=== PATIENT | female | born 1945 | race Caucasian/White ===

== ENCOUNTER → 2019-09-02 | Day surgery (SDC) | payer OTHER ==
--- NOTE | 2019-09-02 11:03 | RAD REPORT ---
EXAM DESCRIPTION: Ultrasound-guided vacuum assisted right breast core biopsy CLINICAL HISTORY: Breast mass N63.10 COMPARISON: No comparisons FINDINGS: Informed consent was obtained and time-out was performed. The patient's right breast was prepped and draped in the usual sterile fashion. 1% lidocaine was used for local anesthetic purposes. Utilizing aseptic technique and ultrasound guidance, a 12 gauge vacuum assisted core biopsy device wa s used to obtain 2 core specimens through the mass of interest lower inner quadrant right breast. A p ost biopsy clip was then placed. All collected material was sent for cytology. Patient tolerated procedure well. IMPRESSION: Successful ultrasound guided vacuum assisted right breast mass biopsy.
--- OUTSIDE RECORDS SUMMARY | 2019-09-09 16:36 | XMS REPORT ---
:1945 [facility] Address [address] [place], [place] [address] [place] [address] Care Team Providers Name Role Phone BRIAN SLADE Unavailable Unavailable Problems This patient has no known problems. Allergies, Adverse Reactions, Alerts This patient has no known allergies or adverse reactions. Medications This patient has no known medications. Results Test Description Test Time Test Comments Text Results Atomic Results Result Comments POCT-GLUCOSE METER 2016-10-19 17:35:00 Test Item Value Reference Range Comments POC-GLUCOSE METER ([employer]) (test 190 mg/dL 70-110 TESTED AT [address] xkri=[id number]) [place] [id number] 13:41:00 Test Item Value Reference Range Comments ACTIVATED CLOTTING TIME [address] [facility] [address] ([employer]) (test ecov=239) [place] [id number] POCT-GLUCOSE [id number] 11:37:00 Test Item Value Reference Range Comments POC-GLUCOSE METER ([employer]) 171 mg/dL 70-110 TESTED AT [address] (test ugag=0645) [place] [address] TROPONIN [id number] 05:50:00 Test Item Value Reference Range Comments TROPONIN I (BEAKER) (test iyqn=990) 0.04 ng/mL 0.00-0.03 Effective 05/18/2014: Reference Range ChangeNew: 0.00-0.03 Previous 0.00- 0.15Troponin I (TnI) levels must be interpreted in the context of the presenting symptoms and the clinical findings. Elevated TnI levels indicate myocardial damage, but are not specific for ischemic heart disease. Elevated TnI levels are seen in patients with other cardiac conditions (including myocarditis and congestive heartfailure), and slight TnI elevations occur in patients with other conditions, including sepsis, renalfailure, acidosis, acute neurological disease, and persistent tachyarrhythmia.POCT-GLUCOSE [id number] 21:37:00 Test Item Value Reference Range Comments POC-GLUCOSE METER (BEAKER) 177 mg/dL 70-[address] [facility] [address] (test jvni=9961) [facility] [address] BASIC METABOLIC [id number] 16:50:00 Test Item Value Reference Range Comments SODIUM (BEAKER) (test 139 meq/L 136-145 loos=738) POTASSIUM (BEAKER) (test 4.2 meq/L 3.5-5.1 xtkt=818) CHLORIDE (BEAKER) (test 109 meq/L 98-107 jeba=026) CO2 (BEAKER) (test 21 meq/L 22-29 fseh=675) BLOOD UREA NITROGEN 18 mg/dL 7-21 (BEAKER) (test baec=542) CREATININE (BEAKER) (test 0.80 mg/dL 0.57-1.25 buyp=272) GLUCOSE RANDOM (BEAKER) 138 mg/dL 70-105 (test cdpg=268) CALCIUM (BEAKER) (test 9.0 mg/dL 8.4-10.2 jajh=276) EGFR (BEAKER) (test 71 mL/min/1.73 sq m ESTIMATED GFR IS NOT mrbq=3806) ACCURATE CREATININE CLEARANCE IN PREDICTING GLOMERULAR FILTRATION RATE. ESTIMATED GFR IS NOT APPLICABLE FOR DIALYSIS PATIENTS. CBC W/PLT COUNT & AUTO [id number] 16:47:00 Test Item Value Reference Range Comments WHITE BLOOD CELL COUNT (BEAKER) (test egui=702) 8.5 K/ L 4.0-10.0 RED BLOOD CELL COUNT (BEAKER) (test vkrq=740) 4.87 M/ L 4.00-5.00 HEMOGLOBIN (BEAKER) (test bdyl=940) 14.1 GM/DL 12.0-15.0 HEMATOCRIT (BEAKER) (test fhup=185) 43.8 % 36.0-45.0 MEAN CORPUSCULAR VOLUME (BEAKER) (test osjq=905) 90.1 fL 82.0-99.0 MEAN CORPUSCULAR HEMOGLOBIN (BEAKER) (test 28.9 pg 27.0-33.0 baxj=513) MEAN CORPUSCULAR HEMOGLOBIN CONC (BEAKER) (test 32.1 GM/DL 32.0-36.0 pezl=002) RED CELL DISTRIBUTION WIDTH (BEAKER) (test 13.2 % 10.3-14.2 mrru=772) PLATELET COUNT (BEAKER) (test ttna=149) 189 K/CU MM 150-430 MEAN PLATELET VOLUME (BEAKER) (test gjkz=040) 7.9 fL 6.5-10.5 NUCLEATED RED BLOOD CELLS (BEAKER) (test 0 /100 WBC 0-0 oraz=603) NEUTROPHILS RELATIVE PERCENT (BEAKER) (test 74 % unoo=181) LYMPHOCYTES RELATIVE PERCENT (BEAKER) (test 19 % zaip=192) MONOCYTES RELATIVE PERCENT (BEAKER) (test 6 % dume=326) EOSINOPHILS RELATIVE PERCENT (BEAKER) (test 0 % hket=852) BASOPHILS RELATIVE PERCENT (BEAKER) (test 0 % yvpe=721) NEUTROPHILS ABSOLUTE COUNT (BEAKER) (test 6.29 K/ L 1.80-8.00 zpxl=857) LYMPHOCYTES ABSOLUTE COUNT (BEAKER) (test 1.61 K/ L 1.48-4.50 fqre=163) MONOCYTES ABSOLUTE COUNT (BEAKER) (test 0.55 K/ L 0.00-1.30 qwry=857) EOSINOPHILS ABSOLUTE COUNT (BEAKER) (test 0.01 K/ L 0.00-0.50 dvhe=577) BASOPHILS ABSOLUTE COUNT (BEAKER) (test 0.04 K/ L 0.00-0.20 xrpg=302) 0.00POCT-GLUCOSE [id number] 16:30:00 Test Item Value Reference Range Comments POC-GLUCOSE METER (BEAKER) 145 mg/dL 70-[address] [facility] [address] [facility] (test lxwn=6971) [facility] [address] TROPONIN [id number] 13:59:00 Test Item Value Reference Range Comments TROPONIN I (BEAKER) (test kdlk=634) 0.03 ng/mL 0.00-0.03 Effective 05/18/2014: Reference Range ChangeNew: 0.00-0.03 Previous 0.00- 0.15Troponin I (TnI) levels must be interpreted in the context of the presenting symptoms and the clinical findings. Elevated TnI levels indicate myocardial damage, but are not specific for ischemic heart disease. Elevated TnI levels are seen in patients with other cardiac conditions (including myocarditis and congestive heartfailure), and slight TnI elevations occur in patients with other conditions, including sepsis, renalfailure, acidosis, acute neurological disease, and persistent tachyarrhythmia.POCT-GLUCOSE [id number] 12:35:00 Test Item Value Reference Range Comments POC-GLUCOSE METER ([employer]) 186 mg/dL 70-[address] [facility] [address] [place] [address] (test phtv=8522) [facility] [address]
== END ==
LOC: DS 10:00
PROVIDERS: ATTEND Family Medicine
DX: C50.911 Malignant neoplasm of unspecified site of right female breast (principal); Z17.0 Estrogen receptor positive status [ER+]
CPT/HCPCS: 19083; 88305

== ENCOUNTER 2019-10-19 14:49 | Inpatient (IN) | payer OTHER ==
--- OUTSIDE RECORDS SUMMARY | 2019-10-19 15:30 | XMS REPORT ---
:1945 Author Organization [facility] t Address [address] [place] [address] Care Team Providers Name Role Phone Chantell SLADE Unavailable Unavailable Problems This patient has no known problems. Allergies, Adverse Reactions, Alerts This patient has no known allergies or adverse reactions. Medications This patient has no known medications. Results Test Description Test Time Test Comments Text Results Atomic Results Result Comments POCT-GLUCOSE METER 2016-10-19 17:35:00 Test Item Value Reference Range Comments POC-GLUCOSE METER ([employer]) (test 190 mg/dL 70-110 TESTED AT [facility] [address] [facility] code = 1538) [facility] [address] [id number] 13:41:00 Test Item Value Reference Range Comments ACTIVATED CLOTTING TIME 198 sec TESTED A T [facility] [address] ([employer]) (test code = 441) [facility] [address] POCT-GLUCOSE [id number] 11:37:00 Test Item Value Reference Range Comments POC-GLUCOSE METER ([employer]) 171 mg/dL 70-110 TESTE D AT [facility] [address] [facility] (test code = 1538) [facility] [address] TROPONIN [id number] 05:50:00 Test Item Value Reference Range Comments TROPONIN I (BEAKER) (test code = 397) 0.04 ng/mL 0.00-0.03 Effective 05/18/2014: Reference Range [...] acidosis, acute neurological disease, and persistent tachyarrhythmia.POCT-GLUCOSE [id number] 21:37:00 Test Item Value Reference Range Comments POC-GLUCOSE METER (BEAKER) 177 mg/dL 70-110 TESTE D AT [facility] [address] (test code = 1538) [place] [address] BASIC METABOLIC [id number] 16:50:00 Test Item Value Reference Range Comments SODIUM (BEAKER) (test 139 meq/L 136-145 code = 381) POTASSIUM (BEAKER) (test 4.2 meq/L 3.5-5.1 code = 379) CHLORIDE (BEAKER) (test 109 meq/L 98-107 code = 382) CO2 (BEAKER) (test code = 21 meq/L 22-29 355) BLOOD UREA NITROGEN 18 mg/dL 7-21 (BEAKER) (test code = 354) CREATININE (BEAKER) (test 0.80 mg/dL 0.57-1.25 code = 358) GLUCOSE RANDOM (BEAKER) 138 mg/dL 70-105 (test code = 652) CALCIUM (BEAKER) (test 9.0 mg/dL 8.4-10.2 code = 697) EGFR (BEAKER) (test code 71 mL/min/1.73 sq m EST IMATED GFR IS NOT = 1092) ACCURATE CREA TININE CLEARANCE IN PRE DICTING GLOMERULAR FILTR ATION RATE. ESTIMATED GFR IS NOT APPLICABLE F OR DIALYSIS PATIENT S. CBC W/PLT COUNT & AUTO [id number] 16:47:00 Test Item Value Reference Range Comments WHITE BLOOD CELL COUNT (BEAKER) (test code = 8.5 K/ L 4.0 -10.0 775) RED BLOOD CELL COUNT (BEAKER) (test code = 761) 4.87 M/ L 4.00-5.00 HEMOGLOBIN (BEAKER) (test code = 410) 14.1 GM/DL 12.0-15.0 HEMATOCRIT (BEAKER) (test code = 411) 43.8 % 36.0-45.0 MEAN CORPUSCULAR VOLUME (BEAKER) (test code = 90.1 fL 82 .0-99.0 753) MEAN CORPUSCULAR HEMOGLOBIN (BEAKER) (test code 28.9 pg 27.0-33.0 = 751) MEAN CORPUSCULAR HEMOGLOBIN CONC (BEAKER) (test 32.1 GM/DL 32.0-36.0 code = 752) RED CELL DISTRIBUTION WIDTH (BEAKER) (test code 13.2 % 10.3-14.2 = 412) PLATELET COUNT (BEAKER) (test code = 756) 189 K/CU MM 150-43 0 MEAN PLATELET VOLUME (BEAKER) (test code = 754) 7.9 fL 6.5-10.5 NUCLEATED RED BLOOD CELLS (BEAKER) (test code = 0 /100 WBC 0-0 413) NEUTROPHILS RELATIVE PERCENT (BEAKER) (test code 74 % = 429) LYMPHOCYTES RELATIVE PERCENT (BEAKER) (test code 19 % = 430) MONOCYTES RELATIVE PERCENT (BEAKER) (test code = 6 % 431) EOSINOPHILS RELATIVE PERCENT (BEAKER) (test code 0 % = 432) BASOPHILS RELATIVE PERCENT (BEAKER) (test code = 0 % 437) NEUTROPHILS ABSOLUTE COUNT (BEAKER) (test code = 6.29 K/ L 1.80-8.00 670) LYMPHOCYTES ABSOLUTE COUNT (BEAKER) (test code = 1.61 K/ L 1.48-4.50 414) MONOCYTES ABSOLUTE COUNT (BEAKER) (test code = 0.55 K/ L 0 .00-1.30 415) EOSINOPHILS ABSOLUTE COUNT (BEAKER) (test code = 0.01 K/ L 0.00-0.50 416) BASOPHILS ABSOLUTE COUNT (BEAKER) (test code = 0.04 K/ L 0 .00-0.20 417) 0.00POCT-GLUCOSE [id number] 16:30:00 Test Item Value Reference Range Comments POC-GLUCOSE METER (BEAKER) 145 mg/dL 70-110 TESTE D AT [facility] [address] [facility] (test code = 1538) [place] [address] TROPONIN [id number] 13:59:00 Test Item Value Reference Range Comments TROPONIN I (BEAKER) (test code = 397) 0.03 ng/mL 0.00-0.03 Effective 05/18/2014: Reference Range [...] acidosis, acute neurological disease, and persistent tachyarrhythmia.POCT-GLUCOSE [id number] 12:35:00 Test Item Value Reference Range Comments POC-GLUCOSE METER (BEAKER) 186 mg/dL 70-110 TESTE D AT [facility] [address] (test code = 1538) [facility] [address]
[2019-10-19 16:21] LABS: Absolute Lymphocytes (CBC) 2.5 K/uL (0.7-4.9); Basophils % 0.5 % (0-1.3); Hematocrit 47.4 % (36.0-45.0); Lymphocytes % 27.3 % (15.3-44.8); MPV 9.6 fL (7.6-11.3); RBC Red Blood Cell Count 5.24 M/uL (3.86-4.86)
[2019-10-19] MEDS ORDERED: ONDANSETRON 4 MG/2 ML VIAL IV PRN (16:29)
--- NOTE | 2019-10-19 16:33 | RAD REPORT ---
EXAM DESCRIPTION: RAD - Abdomen 1 View (KUB) - 10/19/2019 4:25 pm CLINICAL HISTORY: Abdomen pain. FINDINGS: The stomach is distended. Remainder the bowel gas pattern is unremarkable. 10 millimeter area sclerosis within the right ischium. Follow-up x-ray in 6 months recommended to ass ess stability
[2019-10-19 16:46] VITALS: BMI 29.4
[2019-10-19 16:55] LABS: Potassium 3.1 mmol/L (3.5-5.1)
[2019-10-19] MEDS: NA CHLORIDE 0.9% 1,000 ML IV SCH ×4 (17:00→23:30)
[2019-10-19] MEDS ORDERED: NITROGLYCERIN 0.3 MG SL PRN (17:05)
[2019-10-19] MEDS ORDERED: POTASSIUM CL SA 10 MEQ TAB PO ONE (17:21)
[2019-10-19 20:43] LABS: Urine Appearance CLOUDY; Urine Bilirubin NEGATIVE (NEG); Urine Blood NEGATIVE (NEG); Urine Color YELLOW; Urine Glucose 3+ (NEG); Urine Protein NEGATIVE (NEG); Urine Urobilinogen 0.2 mg/dL (0.2-1.0)
[2019-10-19 20:45] LABS: Urine Microscopic Reflex ORDER UMIC
[2019-10-19 20:59] LABS: Urine Bacteria 20-50 /HPF (<20); Urine Culture Reflex Order REFLEXED; Urine Mucus 2+ /HPF (NONE SEEN); Urine RBC <5 /HPF (NONE SEEN)
[2019-10-20] MEDS: KCL 20 MEQ/100 mL IVPB 20 MEQ/100 ML BAG IV SCH ×4 (00:30→11:50)
[2019-10-20 06:11] LABS: Potassium 3.3 mmol/L (3.5-5.1)
[2019-10-20] MEDS: NISOLDIPINE PO SCH (09:00)
--- NOTE | 2019-10-20 10:54 | RAD REPORT ---
EXAM DESCRIPTION: CT - Abdomen W Contrast - 10/20/2019 10:28 am CLINICAL HISTORY: Abdominal pain/diarrhea COMPARISON: None TECHNIQUE: Computed axial tomography from the diaphragm to the iliac crest was obtained. Oral contra st was given. 100 cc Isovue-[address] scans are performed using dose optimization technique as appropriate and may include automated exposure control or mA/KV adjustment according to patient size. FINDINGS:. Fatty liver The spleen, adrenals, pancreas and kidneys appear grossly normal. The wall of the distal esophagus is thickened. Apparent soft tissue is present within the proximal st omach . Mild gastric distention Increased density within the lower right breast IMPRESSION: Apparent soft tissue within the proximal stomach. This may represent a mass or incomplet e distention. Thickening of the wall of the distalesophagus may represent mass or inflammation. Direc t visualization of the distal esophagus/stomach recommended Increased density within the lower right breast. August 2019 ultrasound demonstrated a mass in this region
--- NOTE | 2019-10-20 12:07 | HP ---
Date of Admission: 10/19/2019 Chief Complaint: Dehydration and persistent diarrhea. History Of Present Illness: Patient dates her diarrhea back a number of years since she had a laparo clark band. However, in most cases it is controlled by taking bxmo-lzt-hyzhepv medicine. However, ov er the past month she has had increasing episodes that have not responded to her usual medication, an d for the past 3 days, had persistent diarrhea. The night before being admitted, she was up 6 to 8 t imes with pure watery drainage and diarrhea. Significant factors besides the laparotomy band situati on include her diabetes which has been somewhat difficult to control, various combinations of shots a nd pills have been utilized as possible. This also has contributed to her diarrhea. However, the sy mptoms as of now increased as she has become quite weak. The other factors, she selected to have wilmar ast surgery for her ductal CA within the next week or so in [place]. In view of these findings, we d ecided to admit her, hydrate her, and evaluate her prior to her surgical procedure. The other proble m that has cropped up is hypokalemia, which was noted about 2 weeks ago and attempted to be corrected by oral medication, this too has been unsuccessful. Past Medical History: As above. Patient also has history of hypertension which is pretty well contr olled on medication. Social History: Nonsmoker, nondrinker. Family History: Noncontributory. Physical Examination: General: Patient is an elderly female with stable vital signs. No acute distress. Head and Neck: Normocephalic. Eyes: Pupils equal to light and accommodation. Fundi negative. Trachea midline. Thyroid not palpa ble. ENT: Negative. Chest: Clear to P and A. Cardiovascular: PMI midclavicular line. Heart sounds normal. Peripheral pulses present and equal bilaterally. Abdomen: Minimal tenderness in paraumbilical area. No guarding, rebound, tenderness, or rigidity. Bowel sounds hyperactive. Extremities: Moderately dehydrated. Good tone and movement bilaterally. Reflexes physiologic. Rectal/Pelvic: Deferred. Impression: Acute enteritis of unknown etiology, paj-yxmvuur-fggcvxtrg diabetes mellitus good contro l, hypertension good control, hypokalemia. Plan: Patient will be admitted, placed on IV fluids, hydrated, placed on a sliding scale. The possi bility of oral or subcutaneous injection are contributing to her diarrhea and potassium will be corre cted. Her chemistry profile, labs, and CT of the abdomen will also be scheduled. HR/MODL Voice ID: [id number]
[2019-10-20] MEDS: NA CHLORIDE 0.9% 1,000 ML IV SCH ×4 (14:16→23:39)
[2019-10-20] MEDS ORDERED: CEFTRIAXONE/SWI 1gm 1 GM/10 ML SYR IVP ONE (15:00)
[2019-10-20 15:15] LABS: C.diff Antigen/Toxin Ag neg : Tox neg (NEG : NEG)
--- NOTE | 2019-10-20 19:59 | PN ---
Date of Progress Note: 10/20/2019 Patient has had marked decrease in her diuresis that she has gone from 6-7 times at night at home to 2 times overnight and 13 during the day, so her workup included were a 4+ E coli for UTI, although sh e is asymptomatic. She has had problems with this in the past. We will therefore add Rocephin IV to the regimen. Hydration is improved considerably, although she still slightly clinically dehydrated. Her potassium is in the process of being corrected. The other significant factor is on her CT scan showed some questionable problems at the esophageal GI and gastric junction. However, patient had a traumatic Lap-Band procedure number of years ago and according to her, has not been scoped since phil t time. Therefore, consults and Gastroenterology will see the possibility of this being an issue or not. Potassium is ready to be repeated at 8 tonight according to protocol and then I will advance he r diet and depending on the gastroenterology consult may or may not be suitable for EGD and/or colono scopy in a.m. and determination will depend on her discharge status. The other issue is the blood wilhelm gars have been perfectly normal while she has been here same as her blood pressure. I attribute that somewhat to her diet, in the fact she still has been 5 days now and had for di arrhea, she takes Nexium on a continuous basis. This has been changed to Protonix IV. All these fac tors may lead to her persistent diarrhea. HR/MODL Voice ID: [id number] Report ID: [id number]
[2019-10-20] MEDS ORDERED: POTASSIUM CL SA 10 MEQ TAB PO ONE (20:34)
[2019-10-20] MEDS ORDERED: ACETAMINOPHEN 500 MG TAB PO PRN (20:57)
[2019-10-21 04:29] LABS: Urine Appearance CLOUDY; Urine Bilirubin NEGATIVE (NEG); Urine Blood TRACE (NEG); Urine Color YELLOW; Urine Glucose 1+ (NEG); Urine Protein NEGATIVE (NEG); Urine Urobilinogen 0.2 mg/dL (0.2-1.0)
[2019-10-21 04:48] LABS: Urine Bacteria <20 /HPF (<20); Urine Culture Reflex Order REFLEXED; Urine RBC <5 /HPF (NONE SEEN); Urine Urothelial Cells <5 /HPF (NONE SEEN)
[2019-10-21 05:13] LABS: Absolute Lymphocytes (CBC) 2.1 K/uL (0.7-4.9); Basophils % 0.6 % (0-1.3); Hematocrit 43.4 % (36.0-45.0); Lymphocytes % 22.2 % (15.3-44.8)
[2019-10-21 05:27] LABS: Potassium 3.4 mmol/L (3.5-5.1)
[2019-10-21 05:41] LABS: Blood Morphology Comment NOT SEEN (NOT SEEN); Platelet Estimate DECR; Urine White Blood Cell Casts OK
[2019-10-21] MEDS: KCL 20 MEQ/100 mL IVPB 20 MEQ/100 ML BAG IV SCH ×2 (06:21→08:58)
--- NOTE | 2019-10-21 08:30 | RAD REPORT ---
EXAM DESCRIPTION: RAD - Chest Pa And Lat (2 Views) - 10/21/2019 5:27 am CLINICAL HISTORY: doctors order Chest pain. COMPARISON: Abdomen 1 View (KUB) dated 10/19/2019; Chest Single View dated 10/18/2016; CHEST SINGLE EW dated 06/12/2010; CHEST SINGLE VIEW dated 02/25/2004 FINDINGS: The lungs are clear. The heart is upper limit of normal in size. No displaced fractures. IMPRESSION: No acute or concerning finding suspected.
[2019-10-21] MEDS: NA CHLORIDE 0.9% 1,000 ML IV SCH ×2 (08:59→17:00)
[2019-10-21] MEDS ORDERED: CEFTRIAXONE/SWI 1gm 1 GM/10 ML SYR IVP SCH (09:00)
[2019-10-21] MEDS: NISOLDIPINE PO SCH (09:00)
[2019-10-21] MEDS ORDERED: D50W 25 GM/50 ML SYRINGE/VIAL IV PRN (11:44)
[2019-10-21] MEDS ORDERED: LIDOCAINE 1% MPF 5 ML VIAL ONE (13:32)
[2019-10-21] MEDS ORDERED: propofoL 200 MG/20 ML VIAL IV ONE (13:32)
[2019-10-21 14:32] VITALS: O2SAT 99
[2019-10-21] MEDS ORDERED: SODIUM CHLORIDE 0.9% 10ML INJ IV PRN (14:57)
[2019-10-21 16:09] VITALS: BP 150/74
[2019-10-21 17:42] VITALS: TEMP 98.9
--- NOTE | 2019-10-21 19:51 | DS ---
Date of Discharge: 10/21/2019 Subjective: Patient is seen after her EGD, which revealed rather significant gastroparesis, in view of this, however, she still feels much better than when she came in. She is well hydrated. Potassiu m almost back to normal. The remainder of her blood work is good. Her temperature is stabilized, oc casionally slightly elevated. Her appetite remains good. Activity level is good. I see no reason w hy she cannot be discharged. As far as the diuresed concern is still a little bit confusing. She wa s given Protonix IV. If diarrhea occurs after this, then probably secondary to a PPI which she has b een taking in the form of Nexium. Her blood sugars have remained extraordinary under control as well as her blood pressure, possibly secondary to her being in the hospital rather than her normal outsid e activity. The Bydureon is still in her system although should be wearing off tomorrow. At this ti me, I think it would be jimenez to withhold her diabetic medicine, her blood pressure medicine, her chol esterol medication as well and she could be discharged with instructions to have blood sugars and blo od pressure readings when she will discuss with me tomorrow on Telemedicine, to see Dr. De La Paz as guillermo márquez for followup probable colonoscopy and she is to discuss her best surgical timing with the surgeon tomorrow before a telemedicine visit. Diagnoses: Therefore was dehydration marked with hypokalemia; gastroparesis significant; persistent diarrhea of uncertain etiology, at this time, possibly a combination of medications and neuropathy se condary to diabetes; mjy-xkvzdfp-aqskgoxee diabetes mellitus, good control; hypertension good control ; breast cancer by history. HR/MODL Voice ID: [id number] Report ID: [id number]
[2019-10-21] MEDS ORDERED: PANTOPRAZOLE 40 MG INJ IVP SCH (21:00)
--- NOTE | 2019-10-22 00:06 | OP ---
Surgeon: Oscar De La Paz MD Procedure: Esophagogastroduodenoscopy. Performing Physician: Oscar De La Paz M.D. Indication For Procedure: Abnormal CAT scan showing suspicion of mass in the distal esophagus. Plan For Anesthesia: Monitored anesthesia care. Complexity: Average. Technique: After obtaining informed consent from the patient explaining risks and complications, whi ch include, but are not limited to bleeding, infection, perforation, and anesthesia complication, pat ient was placed in the left lateral position and sedation was given. From then on, the scope was adv anced to the mouth and carefully guided up to the second portion of the duodenum. After completion o f the examination, scope and equipment were withdrawn and procedure terminated in a safe manner. The procedure was not prolonged and kept as short as possible due to the findings as detailed below. Findings: Esophagus: No gross lesion seen in the upper and mid esophagus. In the distal esophagus, there was evidence of a mild stenosis and a small hiatal hernia and changes likely related to prior 2 lap band surgeries. Retroflexion in the stomach revealed evidence of suture material. Biopsies ta roberto from the hypertrophied mucosa. No evidence of neoplastic process was there. Stomach: Significant amount of solid food was found in the body and antrum. Antral body biopsies ta roberto, detailed examination could not be performed due to this and also did not want to prolong the exa mination to decrease risk of aspiration. The pylorus was patent, bulb and second portion appeared no rmal. Complications: None. Tolerance To Anesthesia: Excellent. 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 Mild esophagea l stenosis, small hiatal hernia, postsurgical changes in the gastric fundus, gastritis. Plan: 1.Await pathology results. 2.We will switch PPI to Protonix and see if that helps with her symptoms. We will probably need EGD with dilation and small bowel biopsies with a full day of liquid diet before in the next 2-3 weeks. Also, we will recommend a colonoscopy in the coming weeks. For now, the patient is scheduled for east surgery, which she can go ahead and have done prior to other GI procedures. US/MODL Voice ID: [id number] Report ID: [id number]
--- NOTE | 2019-10-22 17:33 | EKG ---
Test Date: 2019-10-21 Test Time: 12:15:04 Profiling Machine Set Up Operator: RIA MEASUREMENT RESULTS: Intervals: Rate: 84 MS: 196 QRSD: 88 QT: 380 QTc: 449 [place]: P: 76 MS: 196 QRS: 50 T: 76 INTERPRETIVE STATEMENTS: Normal sinus rhythm Low voltage QRS Borderline ECG Compared to ECG 10/18/2016 06:19:25 Low QRS voltage now present Atrial fibrillation no longer present ST (T wave) deviation no longer present Possible ischemia no longer present Electronically Signed On 10-22-19 17:31:53 CDT by Fantasma Huerta
== END 2019-10-21 17:40 | disposition home or self-care (01) | DRG 392 ==
LOC: 2ND 15:25 → OBSVTOIN 10-20 18:20
PROVIDERS: ADMIT Family Medicine; ATTEND Family Medicine
PROC: 0DB38ZX Excision of Lower Esophagus, Via Natural or Artificial Opening Endoscopic, Diagnostic (ICD-10-PCS; principal; 2019-10-21 14:00)
DX: K31.84 Gastroparesis (principal); N39.0 Urinary tract infection, site not specified; K44.9 Diaphragmatic hernia without obstruction or gangrene; E11.40 Type 2 diabetes mellitus with diabetic neuropathy, unspecified; E87.6 Hypokalemia; K29.70 Gastritis, unspecified, without bleeding; I10 Essential (primary) hypertension; K22.2 Esophageal obstruction
CPT/HCPCS: 36415; 71046; 74018; 74160; 80048; 81001; 81003; 81015; 82947; 84132; 85025; 87077; 87086; 87088; 87186; 87324; 87449; 88305; 88312; 93005; G0378; G0379; J0696; J2704; J7030; Q9967

== ENCOUNTER 2023-06-07 13:21 | Emergency (ER) | payer OTHER ==
--- OUTSIDE RECORDS SUMMARY | 2023-06-07 13:25 | XMS REPORT | Clinical Summary ---
Author Name Unknown Organization [facility] Address [address] [place] [address] Care Team Providers Care Retail Selling Floor Leader Name Role Phone Stone Fried MD Unavailable [phone] Mayra Sims MD Unavailable [phone] Greg Goodwin MD Unavailable [phone] Domitila Lee MD Primary Care Provider [phone] Erik Milton MD Unavailable Nellie Alonso MD Unavailable [phone] Jay Casper MD Unavailable Sanford Villasenor MD Unavailable Trae Gamboa MD Unavailable [phone] Ruth Dunne APRN Unavailable Macho Appiah MD Unavailable Samanta Garcia MD Unavailable Marisabel Ahn MD Unavailable Zion Lassiter MD Unavailable [phone] Carol [place] Unavailable [phone] Carmen Reilly MD Unavailable Allergies No known active allergies Medications Medication Sig Dispensed Refills Start Date End Date Status esomeprazole (NexIUM) 40 MG capsule Take 1 tablet by mouth daily. 0 02/16/20 16 Active Precision Xtra Test strp EVERY DAY NEEDED 0 02/14/20 20 Active atorvastatin (Lipitor) 20 mg tabletIndications:C oronary arteriosclerosis, not otherwise specified Take 1 tablet (20 mg) by mouth at bedtime. 90 tablet 1 03/08/20 20 Active aspirin 81 mg EC tablet Take 1 tablet (81 mg) by mouth daily. 0 Active empagliflozin (Jardiance) 25 mg tab Take 25 mg by mouth daily. 0 Active UNABLE TO FIND Med Name: Neuriba 0 Act amelia losartan (COZAAR) 50 mg tabletIndications:H ypertension TAKE 1 TABLET BY MOUTH EVERY DAY 90 tablet 1 06/16/20 20 Active ibuprofen (ADVIL,MOTRIN) 200 mg tablet Take 1 tablet (200 mg) by mouth every 8 (eight) hours as needed. 0 Active glipiZIDE (GLUCOTROL) 10 mg 24 hr tablet TAKE 1 TABLET BY MOUTH TWICE A DAY 0 09/01/19 21 Active multivitamin capsule Take 1 capsule by mouth daily. 0 Active b complex vitamins tablet Take 1 tablet by mouth daily. 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 90 tablet 3 10/24/19 23 Active fenofibrate nanocrystallized (TRICOR) 145 mg tablet Take 1 tablet (145 mg) by mouth daily. 0 02/16/20 16 023 Discontinued(T herapy completed) nitroglycerin (NITROSTAT) 0.3 mg SL tablet Take 1 tablet (0.3 mg) by mouth as needed. 0 10/19/19 20 023 Discontinued semaglutide (Ozempic) 1 mg/dose (2 mg/1.5 mL) pnij Inject 1 mg under the skin once a week. 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 90 tablet 3 02/01/20 21 023 Discontinued(R eorder) ticagrelor (BRILINTA) 90 mg tablet Take 1 tablet (90 mg) by mouth daily. 0 023 Discontinued(O ther/Not Applicable) ergocalciferol (DRISDOL) 50,000 units capsuleIndications: Deficiency of vitamin D3 TAKE 1 CAPSULE (50,000 UNITS) BY MOUTH EVERY 7 DAYS 8 capsule 0 10/14/19 22 023 Discontinued(O ther/Not Applicable) loperamide (IMODIUM) 2 mg capsuleIndications: Infiltrating duct carcinoma, NOS of lower-inner quadrant of breast <Female; Right> Take 2 capsules initially, then 1 capsule after each loose bowel movement. Maximum of 8 capsules a day. 100 capsule 2 11/21/19 22 023 Discontinued prochlorperazine (Compazine) 10 mg tabletIndications:I nfiltrating duct carcinoma, NOS of lower-inner quadrant of breast <Female; Right> Take 1 tablet by mouth every 6 hours as needed for nausea/vomiting. 30 tablet 2 11/21/19 22 023 Discontinued cefPODoxime (VANTIN) 200 mg tabletIndications:U rinary tract infection, not otherwise specified Take 1 tablet (200 mg) by mouth twice daily. 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 90 tablet 3 07/19/19 23 023 Discontinued(R eorder) pantoprazole (PROTONIX) 40 mg EC tablet 0 05/09/20 22 023 Discontinued(O ther/Not Applicable) Active Problems Problem Noted Date Diagnosed Date buttermaker use of bisphosphonate 02/13/2023 Use of aromatase inhibitor 02/13/2023 Bilateral shoulder joint pain 10/23/2022 Multiple nodules of lung 02/06/2022 Last Assessment & Plan: Patient denies any respiratory infections since last seen. She does report a mild cough. CT shows stable nodules with a new small left lung opacity which may be infectious/inflammatory in nature. Recommend continued surveillance with CT Chest in 6 months. Encounter for screening for malignant neoplasm o f colon 01/02/2022 Overview: Added automatically from request for surgery [id number] Diarrhea 12/02/2021 Abnormal vision 12/02/2021 Nausea and vomiting 12/02/2021 Diabetes mellitus 12/02/2021 Type 2 diabetes mellitus 12/02/2021 Urinary tract infection 12/02/2021 Acute nontraumatic kidney injury 12/02/2021 Myalgia 08/07/2021 Osteoporosis 05/02/2021 Last Assessment & Plan: I have seen and examined the patient with the REY, Ms. Marcos NP. I reviewed the REY's note and agree with the finding(s) and plan as documented. HPI: - breast cancer in 2019: segmental mastectomy at OSH in 2019 and had another surgery in 12/2019 followed by chemo and XRT (completed in 11/2020) and now on letrozole (since 10/2019, planned for life) - h/o CAD (5 stents placed recently in 05/2021) - GERD and ulcers in the past (still on a PPI) In regards to bone health/OP: - 01/2021: baseline DXA at [facility] with lowest T-score of -2.8 in left FN - no prior DXA's or antiresorptive in the past - no clinical fragility fracture. Bone scan in 01/2021 showed only degenerative changes in the spine. - BECKY with BSO at 28yo for endometriosis and placed on HRT for 10 years - history of renal stones (last in 2018) managed with lithotripsy - no FHx of OP or hip fracture in the family Has fatigue. 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 Range 06/08/2021 08:44 BUN Latest Ref Range: 6 - 23 mg/dL 33 (H) Creatinine Latest Ref Range: 0.51 - 0.95 mg/dL 1.01 (H) eGFRAA Latest Ref Range: >=60 mL/min/1.73 sq. m 63 eGFRNAA Latest Ref Range: >=60 mL/min/1.73 sq. m 55 (L) Calcium Lvl Latest Ref Range: 8.4 - 10.2 mg/dL 10.1 Magnesium Latest Ref Range: 1.6 - 2.6 mg/dL 2.3 Phosphorus Latest Ref Range: 2.5 - 4.5 mg/dL 3.8 Albumin Lvl Latest Ref Range: 3.5 - 5.2 gm/dL 4.3 CTX Beta Crosslaps Latest Units: pg/mL 602 TSH Latest Ref Range: 0.27 - 4.20 mcunit/mL 3.01 T4 Free Latest Ref Range: 0.93 - 1.70 ng/dL 1.28 Vitamin D 25 OH Latest Ref Range: 30 - 100 ng/mL 18 (L) History of radiation therapy to breast area 11/29 COVID-19 viral pneumonia 10/02/2020 Febrile neutropenia 07/15/2020 Acute pyelonephritis 07/15/2020 Antineoplastic chemotherapy induced anemia 07/15 Other secondary thrombocytopenia 07/15/2020 Hypokalemia 06/21/2020 Hypomagnesemia 06/21/2020 Coronary arteriosclerosis 05/20/2020 Preoperative state 05/13/2020 Encounter for adjustment and management of vascular access device 05/10/2020 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 03/10/2020 Neoplasm of breast primary t umor staging category Tis (DCIS): Ductal carcinoma in situ 03/10/2020 Acquired absence of right breast and nipple 03/01 Overview: Added automatically from request for surgery [id number] Preoperative laboratory examination 03/09/2020 Overview: Added automatically from request for surgery [id number] 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 02/22/2020 Cancer Staging:Pathologic:Stage IIIA(pT2, pN3a, cM0, G2, ER+, ME+, HER2-) - Signed by Zion Lassiter MD on 08/23/2020 Hypertension 07/01/1999 Gastroesophageal reflux disease Neutropenia Antineoplastic chemotherapy induced pancytopenia Fatigue Encounters Date Type Department Care Team Description 05/30/2023 9:20 AM DOCUMENTATION CONSULTANT [facility] - Medical Oncology [address] [place] [address], 5th Floor [facility] [place] [address] Domitila Lee MD Infiltrating duct carcinoma, NOS of lower-inner quadrant of breast <Female; Right> (Primary Dx) 05/29/2023 [facility] - Surgical Oncology [address] [place] [address], 5th Floor [facility] [place] [address] Evelyn Walton, RN 05/07/2023 10:00 AM DOCUMENTATION CONSULTANT [facility] [address] [place] [address], 6th Floor [facility] [place] [address] Carmen Reilly MD Bassaragh, Angella, APRN Fatigue (Primary Dx); Type 2 diabetes mellitus, not otherwise specified; Hypertension; 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 04/30/2023 3:00 PM CDT [facility] [address] [place] [address], 6th [place] [address] Carmen Reilly MD ERRONEOUS ENCOUNTER--DISREGARD (Primary Dx); Myalgia, not otherwise specified 04/03/2023 1:48 PM CDT - 04/03/2023 11:59 PM CDT Hospital Encounter Radiation Oncology [address] [place] [address], 1st Floor near [facility] [place] [address] Zion Lassiter MD 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 (Primary Dx); Secondary and unspecified malignant neoplasm of axilla and upper limb lymph nodes; Acute pyelonephritis Discharge Disposition: Home 04/03/2023 12:03 PM CDT - 04/03/2023 1:47 PM CDT Hospital Encounter Breast Imaging [address] [facility], 5th [place] [address] Zion Lassiter MD Secondary and unspecified malignant neoplasm of axilla and upper limb lymph nodes Discharge Disposition: Home 04/03/2023 11:00 AM CDT - 04/03/2023 12:02 PM CDT Hospital Encounter Breast Imaging [facility], 5th Floor [facility] [place] [address] Zion Lassiter MD Secondary and unspecified malignant neoplasm of axilla and upper limb lymph nodes Discharge Disposition: Home 04/03/2023 Travel 02/22/2023 10:45 AM CDT Infusion [facility] - Infusion [address] [place] [address] Marisabel Ahn MD Gastroesophageal reflux disease (Primary Dx); Osteoporosis 02/22/2023 Travel 02/13/2023 12:00 PM CDT Telemedicine [facility] [address] [place] [address], [address] [place] [address] Marisabel Ahn MD Osteoporosis (Primary Dx); buttermaker use of bisphosphonate; Use of aromatase inhibitor; Gastroesophageal reflux disease; Other specified counseling; Deficiency of vitamin D3 02/13/2023 Telephone [facility] [address] [place] [address], [address] [place], [place] [address] [address] Domenica Hager, RN 02/13/2023 Orders Only [facility] - Medical Oncology [address] [place] [address], 5th [facility] [place] [address] Breonna Kothari, PharmD 02/13/2023 Telephone End[facility] [address] [place] [address], [address] [place], [place] [address] [address] EricaDomenica Robbins RN 02/13/2023 Telephone Endocrine Center [facility], 6th [place] [address] Domenica Hager RN 02/08/2023 10:00 AM CDT Telemedicine [facility] - Pulmonology Medicine [address] [place] [address], 6th [place] [address] Domitila Lee MD Oyekanmi, Gloria, APRN Solitary pulmonary nodule (Primary Dx) 02/06/2023 2:00 PM CDT Ancillary Procedure CT Imaging [facility], 7th [place] [address] Multiple nodules of lung 02/06/2023 1:20 PM CDT Ancillary Procedure Nuclear Medicine [address] [place] [address], 6th Floor, [place] [address] Silke Rodríguez APRN Osteoporosis; Deficiency of vitamin D3; Other specified counseling 02/06/2023 11:15 AM CDT - 02/06/2023 11:59 PM CDT Hospital Encounter [facility] [address] [place] [address] Silke Rodríguez APRN Osteoporosis; Deficiency of vitamin D3; Other specified counseling Discharge Disposition: Home 02/06/2023 Orders Only Cardiop[facility] Center - Pulmonology Medicine [address] [place] [address], 6th [place] [address] Sita Leung APRN Multiple nodules of lung (Primary Dx) 02/06/2023 Documentation Cardiopulmonary Center [address] [place] [address], 6th [place] [address] Monet Hernández RN 01/22/2023 11:00 AM CDT Follow-Up Breast Center - Medical Oncology [address] [place] [address], 5th [place] [address] Domitila Lee MD Infiltrating duct carcinoma, NOS of lower-inner quadrant of breast <Female; Right>; Secondary and unspecified malignant neoplasm of axilla and upper limb lymph nodes 01/22/2023 Travel 12/03/2022 3:00 PM CDT Treatment MD [facility] Physical [address] [address] Radha Bradshaw APRN Phillips, Claire N, PT Infiltrating duct carcinoma, NOS of lower-inner quadrant of breast <Female; Right>; Postmastectomy lymphedema syndrome; Scar conditions and fibrosis of skin; Decreased range of shoulder movement <Unspecified side> 12/03/2022 Travel 11/30/2022 10:00 AM CDT Evaluation MD [facility] Physical [address] [address] Radha Bradshaw APRN Phillips, Claire N, PT Scar conditions and fibrosis of skin (Primary Dx); Infiltrating duct carcinoma, NOS of lower-inner quadrant of breast <Female; Right>; Postmastectomy lymphedema syndrome; Decreased range of shoulder movement <Unspecified side> 11/30/2022 Travel 10/23/2022 11:40 AM CDT Follow-Up [facility] - Medical Oncology [address] [place] [address], 5th [place] [address] Domitila Lee MD Infiltrating duct carcinoma, NOS of lower-inner quadrant of breast <Female; Right> (Primary Dx); Secondary and unspecified malignant neoplasm of axilla and upper limb lymph nodes; Postmastectomy lymphedema syndrome; Myalgia, not otherwise specified; Bilateral shoulder joint pain; Fatigue; Multiple nodules of lung 10/23/2022 Travel 10/03/2022 Orders Only Cardiopulmonary Center [address] [facility] Main [facility], 6th [place] [address] Kenia Tompkins RN Coronary arteriosclerosis, not otherwise specified (Primary Dx) 08/23/2022 10:40 AM DOCUMENTATION CONSULTANT [facility]-Up [facility] - Medical Oncology [address] [place] [address], 5th [place] [address] Jolie Cloud APRN Murthy, Rashmi K., MD Infiltrating duct carcinoma, NOS of lower-inner quadrant of breast <Female; Right> 08/23/2022 Orders Only [facility] - Medical Oncology [address] [place] [address], 5th [place] [address] Uliess Sethi RPH 08/23/2022 Travel 07/19/2022 Orders Only [facility] Medical Oncology [address] [place] [address], [facility] [place] [address] Domitila Lee MD Secondary and unspecified malignant neoplasm of axilla and upper limb lymph nodes 07/18/2022 Refill [facility] Medical Oncology [address] [place] [address], [place] [place] [address] Dana Arce RN Infiltrating duct carcinoma, NOS of lower-inner quadrant of breast <Female; Right>; Secondary and unspecified malignant neoplasm of axilla and upper limb lymph nodes 07/12/2022 Refill [facility] Medical Oncology [address] [place] [address], 5th [place] [address] Jolie Cloud, LAB ANIMAL TECHNICIAN Infiltrating duct carcinoma, NOS of lower-inner quadrant of breast <Female; Right>; Secondary and unspecified malignant neoplasm of axilla and upper limb lymph nodes 07/10/2022 9:00 AM [facility] [address] [place] [address], 6th [place] [address] Bernice Sosa, ULI Infiltrating duct carcinoma, NOS of lower-inner quadrant of breast <Female; Right>; Secondary and unspecified malignant neoplasm of axilla and upper limb lymph nodes; Malignant neoplasm related fatigue; Myalgia, not otherwise specified after 06/07/2022 Immunizations Name Administration Dates Next Due Pfizer SARS-CoV-2 Vaccinatio n (Purple Cap) 04/08/2021,08/28/2020,07/30/2020 Influenza (IM) Preservative Free 06/16/2014 remdesivir 10/05/2020,,10/03/2020,2020,10/01/2020 Surgical History Surgery Date Site/Laterality Comments LAPAROSCOPIC GASTRIC BANDING 07/01/2000 - 06/30/2001 LAPAROSCOPIC GASTRIC BANDING 07/01/2005 - 06/30/2006 BREAST BIOPSY 08/01/2019 - 08/29/2019 Right Biopsy of the right breast proven positive for invasive ductal carcinoma PART MASTECTOMY (EG, LUMPECTOMY, TYLECTOMY, SEGMENTECTOMY) W/AX LYMPHAD 10/30/2019 - 11/29/2019 Right Right segmental mastectomy with positive margins, right sentinel lymph node biopsies, right axillary lymph node dissection MASTECTOMY 12/30/2019 - 01/29/2020 Right Right mastectomy with right axillary lymph node dissection CORONARY ANGIOPLASTY WITH STENT PLACEMENT 07/01/2005 - 06/30/2006 Status post a myocardial infarction TONSILLECTOMY 07/01/1953 - 06/30/1954 TOTAL ABDOMINAL HYSTERECTOMY W/ BILATERAL SALPINGOOPHORECTOMY 07/01/1973 - 06/30/1974 ME REMOVAL TISSUE CONSTRUCTION SAFETY MANAGER W/O INSERTION IMPLANT 03/16/2020 Breast/Right Procedure: REMOVAL OF TISSUE CONSTRUCTION SAFETY MANAGER; Surgeon: Sanford Villasenor MD; Location: MAIN OR; Service: PLS - PLASTIC SURGERY Medical devices from this surgery are in the Medical Devices section. ME INSJ TUNNELED CTR VAD W/SUBQ PORT AGE 5 YR/> 03/28/2020 Chest/Left Procedure: INSERTION OF TUNNELED CENTRALLY INSERTED CENTRAL VENOUS CATHETER WITH SUBCUTANEOUS PORT; Surgeon: Joel Matthews MD; Location: [facility] OR; Service: THRCV - VASCULAR SURGERY Medical devices from this surgery are in the Medical Devices section. ME FLUORO CENTRAL VENOUS ACCESS DEV PLACEMENT 03/28/2020 Chest/Left Procedure: FLUORO GUIDANCE FOR CENTRAL VENOUS ACCESS DEVICE PLACEMENT, REPLACEMENT, OR REMOVAL; Surgeon: Joel Matthews MD; Location: [facility] OR; Service: THRCV - VASCULAR SURGERY Medical devices from this surgery are in the Medical Devices section. ME US VASC ACCESS SITS VSL PATENCY NDL ENTRY 03/28/2020 Neck/Left Procedure: US GUIDANCE WITH EVAL OF POTENTIAL ACCESS SITES, REALTIME US VISUALIZATION OF VASC NEEDLE ENTRY; Surgeon: Joel Matthews MD; Location: [facility] OR; Service: THRCV - VASCULAR SURGERY Medical devices from this surgery are in the Medical Devices section. ME RMVL SHY CTR VAD W/SUBQ PORT/STRIPE MATCHER CTR/PRPH INSJ 05/16/2020 Chest/Left Procedure: PORT-A-CATH REMOVAL; Surgeon: Joel Matthews MD; Location: [facility] OR; Service: THRCV - VASCULAR SURGERY Medical devices from this surgery are in the Medical Devices section. ME INSJ TUNNELED CTR VAD W/SUBQ PORT AGE 5 YR/> 05/16/2020 Neck/Right Procedure: PORT-A-CATH PLACEMENT; Surgeon: Joel Matthews MD; Location: [facility]; Service: THRCV - VASCULAR SURGERY Medical devices from this surgery are in the Medical Devices section. ME US VASC ACCESS SITS VSL PATENCY NDL ENTRY 05/16/2020 Neck/Right Procedure: US GUIDANCE WITH EVAL OF POTENTIAL ACCESS SITES, REALTIME US VISUALIZATION OF VASC NEEDLE ENTRY; Surgeon: Joel Matthews MD; Location: [facility]; Service: THRCV - VASCULAR SURGERY Medical devices from this surgery are in the Medical Devices section. ME FLUORO CENTRAL VENOUS ACCESS DEV PLACEMENT 05/16/2020 Neck/Right Procedure: FLUORO GUIDANCE FOR CENTRAL VENOUS ACCESS DEVICE PLACEMENT, REPLACEMENT, OR REMOVAL; Surgeon: Joel Matthews MD; Location: [facility]; Service: THRCV - VASCULAR SURGERY Medical devices from this surgery are in the Medical Devices section. CORONARY ANGIOPLASTY WITH STENT PLACEMENT 05/01/2021 - 05/30/2021 x 5 stents ME COLONOSCOPY FLX DX W/SUSAN J SPEC WHEN PFRMD 04/20/2022 N/A Procedure: DIAGNOSTIC FLEXIBLE COLONOSCOPY PROXIMAL TO SPLENIC FLEXURE; Surgeon: Jay Casper MD; Location: MAIN ENDOSCOPY; Service: GASTROENTEROLOGY Medical History Medical History Date Comments Hypertension 2000 Diverticulitis 1999 Congestive heart failure 2009 Chronic diarrhea 2009 Gastroesophageal reflux disease 2000 Atrial fibrillation 2007 treated medi marito, no recurrence per patient Diabetes screening 03/08/2020 SUGAR INITIAT AMELIA: Hemoglobin A1c 7.8% 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 10/2019 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 08/2019 Type 2 diabetes mellitus 2010 Coronary arteriosclerosis 2006 Myocardial infarction 2006 Placment o f stent Neoplasm of breast primary t umor staging category Tis (DCIS): Ductal carcinoma in situ 10/2019 Family History Medical History Relation Name Comments Coronary heart disease (CHD) Father CABG x 1 Heart failure Father Pacemaker plac ed at 65, 69 then replaced at age of 76 Colon cancer Mother Coronary artery disease Mother Coronary heart disease (CHD) Mother Breast cancer Paternal Aunt Alcohol abuse Son Functioning al coholic Ovarian cancer Neg Hx Relation Name Status Comments Father (Age 76) from complications of a pacemaker induced arrythmia then sustained a myocardial infarction Mother (Age 71) from a myocardial infarction Paternal Aunt (Age 82) from a myocardial infarction in the setting of dementia Sister 1 Alive Sister 2 Alive Sister 3 (Age 51) of wilhelm dden cardiac arrest in his sleep Son Alive Social History Tobacco Use Types Packs/Day Years Used Date Smoking Tobacco: Never Smokeless Tobacco: Never Alcohol Use Standard Drinks/Week Comments Never 0 (1 standard drink = 0.6 oz pur e alcohol) One toast a year Education Answer Date Recorded What is the highest level of school you have completed or the highest degree you have received? Associate degree: occupational, technical, or vocational program 03/10/2020 Sex and Gender Information Value Date Recorded Sex Assigned at Female 07/22/2020 9:35 AM DOCUMENTATION CONSULTANT Gender Identity Not on file Sexual Orientation Straight 07/22/2020 9: 35 AM DOCUMENTATION CONSULTANT Job Start Date Occupation Industry Not on file Not on file Not on file Obstetrics History Comments Menarche: 11 Parity: 19 Breastfed: NO BC: Yes, 8 Years HRT: Yes, 15 Years Last Filed Vital Signs Vital Sign Reading Time Taken Comments Blood Pressure 137/82 04/03/2023 2:05 PM CDT Pulse 66 04/03/2023 2:05 PM CDT Temperature 36.4 C (97.6 F) 02/22/2023 1:25 PM CD T Respiratory Rate 16 04/03/2023 2:05 PM CDT Oxygen Saturation 98% 04/03/2023 2:05 PM CDT Inhaled Oxygen Concentration - - Weight 74.3 kg (163 lb 12.8 oz) 023 11:44 AM CDT Height 157.5 cm (5' 2") 02/06/2023 1:36 PM CDT Body Mass Index 29.96 02/06/2023 1:36 PM CDT Plan of Treatment Upcoming Encounters Date Type Department Care Team Description 08/12/2023 10:15 AM DOCUMENTATION CONSULTANT Ancillary Procedure CT Imaging [address] [facility], 7th [place] [address] Sita Leung APRN [address] [place] [address] 08/12/2023 12:30 PM DOCUMENTATION CONSULTANT Follow-Up Cardiopulmonary Center - Pulmonology Medicine [address] [place] [address], 6th [place] [address] Sita Leung, LAB ANIMAL TECHNICIAN [address] [place] [address] 09/10/2023 10:00 AM CDT Follow-Up Breast Center - Medical Oncology [address] [place] [address], 5th [place] [address] Radha Bradshaw, LAB ANIMAL TECHNICIAN [address] [place] [address] 11/05/2023 1:00 PM CDT Office Visit Internal Medicine Center [address] [place] [address], 6th [place] [address] Ruth Dunne, LAB ANIMAL TECHNICIAN [facility] [place] [address] 02/19/2024 9:00 AM CDT Appointment [facility] [address] [place] [id number] Marisabel Ahn MD [facility] [place] [address] 02/19/2024 9:20 AM CDT Ancillary Procedure Nuclear Medicine [address] [place] [address], 6th Floor, [place] [address] Marisabel Ahn MD [address] [place] [id number] 02/19/2024 11:00 AM CDT [facility] [address] [place], [place] [address], 6th [place] [address] Marisabel Ahn MD [address] [place] [address] 04/07/2024 8:45 AM CDT Appointment Breast Imaging [address] [facility] [place], 5th [place] [address] Zion Lassiter MD [address] [place] [address] 04/07/2024 9:45 AM CDT Appointment Breast Imaging [address] [facility] [place], 5th [place] [address] Zion Lassiter MD [address] [place] [address] 04/07/2024 11:15 AM CDT Appointment Radiation Oncology [address] [facility] [place], 1st [place] [address] Zion Lassiter MD [facility] [place] [address] Health Maintenance Due Date Last Done Comments COVID-19 Vaccination (4 20 23-24 season) 2023 04/08/2021, 08/28/2020, 07/30/2020 Medical Devices Implanted Type Area Operational Risk Analyst Device Identifier Shelf Expiration Date Model / Serial / Lot [id number] mobley Isp 8fr - Sna Implanted:Qty : 1 on 05/16/2020 by Joel Matthews MD at [facility] Port Right: Internal Jugular BARD PERIPHERAL VASCULAR [id number] 05/30/2021 [id number] / NA / [id number] Procedures Procedure Name Priority Date/Time Associated Diagnosis Comments US UPPER EXTREMITY LIMITED RIGHT Routine 04/03/2023 12:53 PM CDT Secondary and unspecified malignant neoplasm of axilla and upper limb lymph nodes US CHEST Routine 04/03/2023 12:53 PM CDT Secondary and unspecified malignant neoplasm of axilla and upper limb lymph nodes MAMMO DIGITAL DIAGNOSTIC LEFT W ITZ Routine 04/03/2023 12:02 PM CDT Secondary and unspecified malignant neoplasm of axilla and upper limb lymph nodes .GLOMERULAR FILTRATION RATE Routine 02/22/2023 10:45 AM CDT Osteoporosis Gastroesophageal reflux disease SERUM CREATININE Routine 02/22/2023 10:4 5 AM CDT Osteoporosis Gastroesophageal reflux disease CALCIUM LEVEL Routine 02/22/2023 10:45 AM CDT Osteoporosis Gastroesophageal reflux disease CREATININE Routine 02/22/2023 10:45 AM CDT Osteoporosis Gastroesophageal reflux disease CT CHEST WO CONTRAST Routine 02/06/2023 2:38 PM CDT Multiple nodules of lung DEXA BONE MINERAL DENSITY BOTH HIPS AND SPINE Routine 02/06/2023 2:00 PM CDT Osteoporosis Deficiency of vitamin D3 Other specified counseling .GLOMERULAR FILTRATION RATE Routine 02/06/2023 11:35 AM CDT Osteoporosis Deficiency of vitamin D3 Other specified counseling SERUM CREATININE Routine 02/06/2023 11:3 5 AM CDT Osteoporosis Deficiency of vitamin D3 Other specified counseling PHOSPHORUS LEVEL Routine 02/06/2023 11:3 5 AM CDT Osteoporosis Deficiency of vitamin D3 Other specified counseling MAGNESIUM LEVEL Routine 02/06/2023 11:35 AM CDT Osteoporosis Deficiency of vitamin D3 Other specified counseling CALCIUM LEVEL Routine 02/06/2023 11:35 AM CDT Osteoporosis Deficiency of vitamin D3 Other specified counseling CREATININE Routine 02/06/2023 11:35 AM CDT Osteoporosis Deficiency of vitamin D3 Other specified counseling BLOOD UREA NITROGEN Routine 02/06/2023 1 1:35 AM CDT Osteoporosis Deficiency of vitamin D3 Other specified counseling ALBUMIN LEVEL Routine 02/06/2023 11:35 AM CDT Osteoporosis Deficiency of vitamin D3 Other specified counseling CTX BETA CROSSLAPS Routine 02/06/2023 11 :35 AM CDT Osteoporosis Deficiency of vitamin D3 Other specified counseling VITAMIN D 25 HYDROXY LEVEL Routine 02/06/2023 11:35 AM CDT Osteoporosis Deficiency of vitamin D3 Other specified counseling after 06/07/2022 Results * US Upper Extremity Limited Right for Breast Ultrasound (Add-on Only) (04/03/2023 12:53 PM CDT) Anatomical Region Laterality Modality Arm, Extremity Right Ultrasound 04/03/2023 1:15 PM CDT Impressions 04/03/2023 1:26 PM CDT No suspicious findings. I personally reviewed these image(s) along with the resident's/fellow's interpretations, certify that if a procedure was performed I was physically present, and agree with the final report. Narrative 04/03/2023 1:26 PM CDT FULL RESULT: Examination: US CHEST, US UPPER EXTREMITY LIMITED RIGHT 04/03/2023 12:53 PM Clinical History: 77 year old with history of breast cancer Indication: Personal history of malignant neoplasm of breast Comparison: Ultrasound 04/03/22 Technique: Real-time sonographic imaging of the right chest wall was performed. Imaging was performed of the right axilla (levels I, II, and III). Ultrasound imaging of the chest/mediastinum was performed to evaluate the internal mammary lymph nodes. Images were obtained in multiple scanning planes. Findings: RIGHT CHEST WALL: Post surgical changes and seroma status post right mastectomy. No suspicious findings. Right regional [place]: No suspicious axillary or internal mammary lymph nodes identified. Procedure Note Rhonda Ortega MD - 04/03/2023 FULL RESULT: Examination: US CHEST, US UPPER EXTREMITY LIMITED RIGHT 04/03/2023 12:53PM Clinical History: 77 year old with history of breast cancer Indication: Personal history of malignant neoplasm of breast Comparison: Ultrasound 04/03/22 Technique: Real-time sonographic imaging of the right chest wall wasperformed. Imaging was performed of the right axilla (levels I, II, andIII). Ultrasound imaging of the chest/mediastinum was performed toevaluate the internal mammary lymph nodes. Images were obtained inmultiple scanning planes. Findings: RIGHT CHEST WALL: Post surgical changes and seroma status post right mastectomy. Nosuspicious findings. Right regional [place]ony [place]: No suspicious axillary or internal mammarylymph nodes identified. IMPRESSION: No suspicious findings. I personally reviewed these image(s) along with the resident's/fellow'sinterpretations, certify that if a procedure was performed I wasphysically present, and agree with the final report. Zion Lassiter MD IMG US ORDERABLES * US Chest (04/03/2023 12:53 PM CDT) Anatomical Region Laterality Modality Chest Ultrasound 04/03/2023 1:15 PM CDT Impressions 04/03/2023 1:26 PM CDT No suspicious findings. I personally reviewed these image(s) along with the resident's/fellow's interpretations, certify that if a procedure was performed I was physically present, and agree with the final report. Narrative 04/03/2023 1:26 PM CDT FULL RESULT: Examination: US CHEST, US UPPER EXTREMITY LIMITED RIGHT 04/03/2023 12:53 PM Clinical History: 77 year old with history of breast cancer Indication: Personal history of malignant neoplasm of breast Comparison: Ultrasound 04/03/22 Technique: Real-time sonographic imaging of the right chest wall was performed. Imaging was performed of the right axilla (levels I, II, and III). Ultrasound imaging of the chest/mediastinum was performed to evaluate the internal mammary lymph nodes. Images were obtained in multiple scanning planes. Findings: RIGHT CHEST WALL: Post surgical changes and seroma status post right mastectomy. No suspicious findings. Right regional tony basin: No suspicious axillary or internal mammary lymph nodes identified. Procedure Note Rhonda Ortega MD - 04/03/2023 FULL RESULT: Examination: US CHEST, US UPPER EXTREMITY LIMITED RIGHT 04/03/2023 12:53PM Clinical History: 77 year old with history of breast cancer Indication: Personal history of malignant neoplasm of breast Comparison: Ultrasound 04/03/22 Technique: Real-time sonographic imaging of the right chest wall wasperformed. Imaging was performed of the right axilla (levels I, II, andIII). Ultrasound imaging of the chest/mediastinum was performed toevaluate the internal mammary lymph nodes. Images were obtained inmultiple scanning planes. Findings: RIGHT CHEST WALL: Post surgical changes and seroma status post right mastectomy. Nosuspicious findings. Right regional tony basin: No suspicious axillary or internal mammarylymph nodes identified. IMPRESSION: No suspicious findings. I personally reviewed these image(s) along with the resident's/fellow'sinterpretations, certify that if a procedure was performed I wasphysically present, and agree with the final report. Zion Lassiter MD IMG US ORDERABLES * Mammography Digital Diagnostic Left with Itz (04/03/2023 12:02 PM CDT) Anatomical Region Laterality Modality Breast Left Mammography 04/03/2023 12:0 4 PM CDT Impressions 04/03/2023 12:04 PM CDT There is no mammographic evidence of malignancy. Follow-up mammogram in 1 year is recommended. BI-RADS Category 1: Negative Narrative 04/03/2023 12:04 PM CDT CLINICAL INDICATION: Patient is a 77 year old female and is seen for history of breast cancer MAMMO DIGITAL DIAGNOSTIC LEFT W ITZ COMPARISON: The present examination has been compared to prior imaging studies performed at [facility] on 02/29/2020, and at [facility] on 03/28/2021 and 04/03/2022. FINDINGS: The breast is heterogeneously dense, which may obscure small masses. No dominant mass, distortion, or suspicious calcifications are identified. Tomosynthesis performed in CC and MLO projections. Procedure Note Rhonda Ortega MD - 04/03/2023 CLINICAL INDICATION: Patient is a 77 year old female and is seen for history of breast cancer MAMMO DIGITAL DIAGNOSTIC LEFT W ITZ COMPARISON: The present examination has been compared to prior imaging [facility] 02/[facility], and at [facility] on 03/28/2021 and 04/03/2022. FINDINGS: The breast is heterogeneously dense, which may obscure small masses. No dominant mass, distortion, or suspicious calcifications areidentified. Tomosynthesis performed in CC and MLO projections. IMPRESSION: There is no mammographic evidence of malignancy. Follow-up mammogram in 1 year is recommended. BI-RADS Category 1: Negative Zion Lassiter MD IMG MAMMOGRAPHY ORDE BLADE * (ABNORMAL) .Serum Creatinine (02/22/2023 10:45 AM CDT) Only the most recent of2 resultswithin the time period is included. Creatinine 1.01(H) 0.51 - 0.95 mg/dL [place] Comment:Testing performed at [facility], [address] [place] [address], [place] [address] Blood 02/22/2023 10:4 5 AM CDT 02/22/2023 10:45 AM CDT Narrative [place] - 02/22/2023 11:19 AM CDT Within 30 days of Zoledronic Acid dose. Marisabel Ahn MD LAB BLOOD ORDERABLES [address], [facility] [address] [place] [address] * (ABNORMAL) Glomerular Filtration Rate (02/22/2023 10:45 AM CDT) Only the most recent of2 resultswithin the time period is included. eGFR 57(L) >=60 mL/min/1.7 3 sq. m [place] Comment: The eGFRcr is calculated with the 2020 CKD-EPI creatinine equation using creatinine, patient's age, and sex for adults 18 years of age and older. Other factors, especially muscle mass, may affect accuracy and need to be considered. According to the Kidney Disease: Improving Global Outcomes (KDIGO) CKD Work Group 2012 Clinical Practice Guideline, chronic kidney disease (CKD) is defined as the abnormalities of kidney structure or function, present for more than 3 months, with implications for health. CKD should be classified by cause, GFR category, and albuminuria category. KDIGO guidelines provide the following GFR categories Stage Description GFR mL/min/1.73 m2 G1* Normal or high >= 90 G2* Mildly decreased 60-89 G3a Mildly to moderately decreased 45-59 G3b Moderately to severely decreased 30-44 G4 Severely decreased 15-29 G5 Kidney failure <15 *In the absence of evidence of kidney damage, neither G1 nor G2 fulfill criteria for CKD. Testing performed at [facility], [address] [place] [address] Blood 02/22/2023 10:4 5 AM CDT 02/22/2023 10:45 AM CDT [facility] 02/22/2023 11:19 AM CDT Within 30 days of Zoledronic Acid dose. Marisabel Ahn MD LAB BLOOD ORDERABLES [address], [facility] [address] [place] [address] * Calcium (02/22/2023 10:45 AM CDT) Only the most recent of2 resultswithin the time period is included. [facility] Signature Calcium Lvl 9.5 8.4 - 10.2 mg/dL [place] Comment:Testing performed at [facility], [address] [place] [id number] Blood 02/22/2023 10:4 5 AM CDT 02/22/2023 10:45 AM CDT [facility] 02/22/2023 11:19 AM CDT Within 30 days of Zoledronic Acid dose. Marisabel Ahn MD LAB BLOOD ORDERABLES [address], [facility] [address] [place] [address] * CT Chest without Contrast (02/06/2023 2:38 PM CDT) Anatomical Region Laterality Modality Chest Computed Tomogra phy 02/06/2023 3:08 PM CDT Impressions 02/06/2023 4:55 PM CDT 1. New irregular opacity in the medial left lung apex may be inflammatory. Attention on follow-up. 2. Few nonspecific tiny pulmonary nodules are stable and can be followed. 3. Right mastectomy with small postsurgical seroma. ACTIONABLE ITEMS/RECOMMENDATIONS: None. I personally reviewed the image(s) and the resident's interpretation and agree with the written report. I personally reviewed these image(s) along with the resident's/fellow's interpretations, certify that if a procedure was performed I was physically present, and agree with the final report. Narrative 02/06/2023 4:55 PM CDT FULL RESULT: Examination: CT CHEST WO CONTRAST on 02/06/2023 2:38 PM. 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 Findings: Lungs/Airways/Pleura: Unchanged subpleural reticular opacities in the anterolateral right upper and middle lobes consistent with sequela of radiation therapy for breast cancer. There is a new small irregular opacity in the medial aspect of the left lung apex (series 302, image 20). A few tiny pulmonary nodules are stable (annotated on series 302). The central airways are patent. No pleural effusion or pneumothorax. Neck/Mediastinum/Nodes/Heart: Multiple subcentimeter supraclavicular and mediastinal lymph nodes are overall stable. No suspicious lymph nodes based on size criteria. The heart is normal in size. No pericardial effusion. Severe coronary artery calcifications. The thoracic aorta pulmonary trunk are normal in diameter. Incidentally noted normal variant of common origin of the right brachiocephalic and left common carotid arteries. The esophagus is nondistended and normal in course. A sliding hiatal hernia is present. Upper abdomen: No suspicious focal lesions in the partially imaged liver or spleen are identified on noncontrast study. Bilateral adrenal glands are within normal limits. Bones/Soft Tissues: No suspicious lytic or blastic osseous lesions. Minimal multilevel degenerative disk changes of the spine. Stable postsurgical changes from right mastectomy. Small fluid attenuating collection in the surgical bed likely representing seroma, which has slightly increased in volume since the prior, however when compared to exam from 2020 it appears smaller. Procedure Note Mone Molina MD - 02/06/2023 FULL RESULT: Examination: CT CHEST WO CONTRAST on 02/06/2023 2:38 PM. 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 Findings: Lungs/Airways/Pleura: Unchanged subpleural reticular opacities in theanterolateral right upper and middle lobes consistent with sequela ofradiation therapy for breast cancer. There is a new small irregularopacity in the medial aspect of the left lung apex (series 302, image 20).A few tiny pulmonary nodules are stable (annotated on series 302). The central airways are patent. No pleural effusion or pneumothorax. Neck/Mediastinum/Nodes/Heart: Multiple subcentimeter supraclavicular andmediastinal lymph nodes are overall stable. No suspicious lymph nodesbased on size criteria. The heart is normal in size. No pericardial effusion. Severe coronaryartery calcifications. The thoracic aorta pulmonary trunk are normal indiameter. Incidentally noted normal variant of common origin of the rightbrachiocephalic and left common carotid arteries. The esophagus is nondistended and normal in course. A sliding hiatalhernia is present. Upper abdomen: No suspicious focal lesions in the partially imaged liveror spleen are identified on noncontrast study. Bilateral adrenal glandsare within normal limits. Bones/Soft Tissues: No suspicious lytic or blastic osseous lesions.Minimal multilevel degenerative disk changes of the spine. Stable postsurgical changes from right mastectomy. Small fluid attenuatingcollection in the surgical bed likely representing seroma, which hasslightly increased in volume since the prior, however when compared toexam from 2020 it appears smaller. IMPRESSION: 1. New irregular opacity in the medial left lung apex may beinflammatory. Attention on follow-up. 2. Few nonspecific tiny pulmonary nodules are stable and can befollowed. 3. Right mastectomy with small postsurgical seroma. ACTIONABLE ITEMS/RECOMMENDATIONS: None. I personally reviewed the image(s) and the resident's interpretation andagree with the written report. I personally reviewed these image(s) along with the resident's/fellow'sinterpretations, certify that if a procedure was performed I wasphysically present, and agree with the final report. Sita Leung LAB ANIMAL TECHNICIAN IMG CT ORDERABLES * NM Bone Mineral Density Both Hips and Spine (02/06/2023 2:00 PM CDT) Anatomical Region Laterality Modality Spine Nuclear Medicine 02/06/2023 2:29 PM CDT Impressions 02/06/2023 2:34 PM CDT Osteoporosis. Interval significant increased bone density in the lumbar spine. I personally reviewed these image(s) along with the resident's/fellow's interpretations, certify that if a procedure was performed I was physically present, and agree with the final report. Narrative 02/06/2023 2:34 PM CDT FULL RESULT: Examination: Bone Mineral Density (DXA), 02/06/2023 Clinical History: 77-year-old postmenopausal female with history of breast cancer. Indication: Reassessment of bone mineral density.. Comparison: January 2021. Technique: Bone mineral density was obtained using Hologic dual-energy X-ray absorptiometry. Findings: The findings are provided in the below table(s). Bone Density: Region Exam Date BMD T- Z- g/cm2 Score Score AP Spine (L1-L4) 02/06/2023 0.814 -2.1 0.4 Femoral Neck (Left) 02/06/2023 0.544 -2.7 -0.6 Total Hip (Left) 02/06/2023 0.703 -2.0 -0.1 Femoral Neck (Right) 02/06/2023 0.552 -2.7 -0.5 Total Hip (Right) 02/06/2023 0.671 -2.2 -0.3 For postmenopausal women and men age 50 and over, the World Health Organization criteria for BMD interpretation classify patients as: Normal (T-score at or above -1.0), Osteopenia (T-score between -1.0 and -2.5), or Osteoporosis (T-score at or below -2.5). Previous Exams: Region Exam Age BMD T-score BMD Change vs Date g/cm2 Baseline Previous AP Spine (L1-L4) 02/06/2023 77 0.814 -2.1 4.1%* 4.1%* 01/31/2021 75 0.782 -2.4 Total Hip(Left) 02/06/2023 77 0.703 -2.0 2.9% 2.9% 01/31/2021 75 0.683 -2.1 Femoral Neck(Left) 02/06/2023 77 0.544 -2.7 0.8% 0.8% 01/31/2021 75 0.540 -2.8 Total Hip(Right) 02/06/2023 77 0.671 -2.2 0.3% 0.3% 01/31/2021 75 0.670 -2.2 Femoral Neck(Right) 02/06/2023 77 0.552 -2.7 -0.5% -0.5% 01/31/2021 75 0.555 -2.7 *Denotes significance at 95% confidence level, site specific LSC for AP Spine = 0.029 g/cm2, site specific LSC for Total Hip = 0.033 g/cm2, site specific LSC for Femoral Neck = 0.045 g/cm2, LSC for 1/3 Forearm = 0.023 g/cm2 Procedure Note Ran Vinson MD - 02/06/2023 FULL RESULT: Examination: Bone Mineral Density (DXA), 02/06/2023 Clinical History: 77-year-old postmenopausal female with history of breastcancer. Indication: Reassessment of bone mineral density.. Comparison: January 2021. Technique: Bone mineral density was obtained using Hologic [id number] absorptiometry. Findings: The findings are provided in the below table(s). Bone Density: Region Exam Date BMD T- Z- g/cm2 Score Score AP Spine (L1-L4) 02/06/2023 0.814 -2.1 0.4 Femoral Neck (Left) 02/06/2023 0.544 -2.7 -0.6 Total Hip (Left) 02/06/2023 0.703 -2.0 -0.1 Femoral Neck (Right) 02/06/2023 0.552 -2.7 -0.5 Total Hip (Right) 02/06/2023 0.671 -2.2 -0.3 For postmenopausal women and men age 50 and over, the World Health Organization criteria for BMD interpretation classify patients as: Normal (T-score at or above -1.0), Osteopenia (T-score between -1.0 and -2.5), or Osteoporosis (T-score at or below -2.5). Previous Exams: Region Exam Age BMD T-score BMD Change vs Date g/cm2 Baseline Previous AP Spine (L1-L4) 02/06/2023 77 0.814 -2.1 4.1%* 4.1%* 01/31/2021 75 0.782 -2.4 Total Hip(Left) 02/06/2023 77 0.703 -2.0 2.9% 2.9% 01/31/2021 75 0.683 -2.1 Femoral Neck(Left) 02/06/2023 77 0.544 -2.7 0.8% 0.8% 01/31/2021 75 0.540 -2.8 Total Hip(Right) 02/06/2023 77 0.671 -2.2 0.3% 0.3% 01/31/2021 75 0.670 -2.2 Femoral Neck(Right) 02/06/2023 77 0.552 -2.7 -0.5% -0.5% 01/31/2021 75 0.555 -2.7 *Denotes significance at 95% confidence level, site specific LSC for APSpine = 0.029 g/cm2, site specific LSC for Total Hip = 0.033 g/cm2, sitespecific LSC for Femoral Neck = 0.045 g/cm2, LSC for 1/3 Forearm = 0.023 g/cm2 IMPRESSION: Osteoporosis. Interval significant increased bone density in the lumbarspine. I personally reviewed these image(s) along with the resident's/fellow'sinterpretations, certify that if a procedure was performed I wasphysically present, and agree with the final report. Silke Rodríguez APRN IMG DXA ORDERABLES * CTX Beta Crosslaps (02/06/2023 11:35 AM CDT) CTX 204 152 - 858 pg/mL [facility] [place] Blood 02/06/2023 11:3 5 AM CDT 02/06/2023 12:26 PM CDT Silke E Puls LAB ANIMAL TECHNICIAN LAB BLOOD ORDERABLES Performing Organization Address [facility] Co de Phone Number [facility] Unless otherwise noted, all lab tests performed by: Division of Pathology and Laboratory Medicine [address] [place] [id number] * Vitamin D 25OH (02/06/2023 11:35 AM CDT) Vitamin D 25 OH 33 30 - 100 ng/mL [facility] Comment: Reference Range: Deficiency: <=20 ng/mL Insufficiency: 21-29 ng/mL Sufficiency: 30-100 ng/mL Potential toxicity: >100 ng/mL Blood 02/06/2023 11:3 5 AM CDT 02/06/2023 12:26 PM CDT Silke Rodríguez LAB ANIMAL TECHNICIAN LAB BLOOD ORDERABLES Performing Organization Address [facility] Co de Phone Number [facility] Unless otherwise noted, all lab tests performed by: Division of Pathology and Laboratory Medicine [address] [place] [id number] * BUN (02/06/2023 11:35 AM CDT) Pathologist [facility] BUN 21 6 - 23 mg/dL [facility] Comment:Testing Performed at [facility] Lab Paint Stock Clerk [facility], [address] [place] [address], [address], [place] [address] Blood 02/06/2023 11:3 5 AM CDT 02/06/2023 11:58 AM CDT Silke Rodríguez LAB ANIMAL TECHNICIAN LAB BLOOD ORDERABLES Performing Organization Address City/[facility] Co de Phone Number [facility] [address] [place] [address]. [address] [place] [address] * Phosphorus Level (02/06/2023 11:35 AM CDT) Phosphorus 3.9 2.5 - 4.5 mg/dL [facility] Comment:Testing Performed at [facility] Lab Paint Stock Clerk [facility], [address], [address], [place] [address] Blood 02/06/2023 11:3 5 AM CDT 02/06/2023 11:58 AM CDT Silke E Puls LAB ANIMAL TECHNICIAN LAB BLOOD ORDERABLES [facility] [address] [place] [address]. [address] [place] [address] * Magnesium Level (02/06/2023 11:35 AM CDT) Magnesium 1.8 1.6 - 2.6 mg/dL [facility] Comment:Testing Performed at [facility] Lab Paint Stock Clerk [facility], [address] [place] [address], [address], [place] [address] Blood 02/06/2023 11:3 5 AM CDT 02/06/2023 11:58 AM CDT Silke E Puls LAB ANIMAL TECHNICIAN LAB BLOOD ORDERABLES Performing Organization Address [facility] Co de Phone Number [address] [place] [address] * Albumin Level (02/06/2023 11:35 AM CDT) Albumin Lvl 4.2 3.5 - 5.2 gm/dL [facility] Comment:Testing Performed at [facility] Lab Paint Stock Clerk [facility], [address] [place] [address], [address], [place] [address] Blood 02/06/2023 11:3 5 AM CDT 02/06/2023 11:58 AM CDT Silke E Puls LAB ANIMAL TECHNICIAN LAB BLOOD ORDERABLES [address] [place] [address] after 06/07/2022 Advance Directives Latest Code Status on File Code Status Date Activated Date Inactivated Comments Full Code 12/02/2021 3:51 AM 12/02/2021 7:07 PM Code Status History Code Status Date Activated Date Inactivated Comments Full Code 09/30/2020 10:13 PM 10/05/2020 6:38 PM Full Code 07/13/2020 5:27 PM 07/18/2020 5:41 PM Care Teams Retail Selling Floor Leader Relationship Specialty Start Date End Date Stone Fried MD [address] [facility] [address] [place], [place] [phone] PCP - External Follow Up A General Surgery 02/15/20 Mayra Sims MD [address] [place] [address] [address] [place] [address] PCP - External Follow Up B Internal Medicine 02/15/20 Greg Goodwin MD [address] [place] [id number] PCP - External Primary Care Provider Family Practice 02/15/20 Domitila Lee MD [address] [place] [id number] PCP - General Breast Medical Oncology 02/16/20 Erik Milton MD [address] [place] [id number] Physician Nephrology 05/11/22 Nellie Alonso MD [address] [place] [phone] Consulting Physician Internal Medicine 03/03/20 Jay Casper MD [address] [place] [phone] Consulting Physician Gastroenterology, Hepatology and Nutrition 01/02/22 Sanford Villasenor MD [address] [place] [address] 35365 Consulting Physician Plastic and Reconstructive Surgery 03/10/20 Trae Gamboa MD [address] [place] [id number] Consulting Physician Pulmonary Medicine 01/12/21 Ruth Dunne APRN [address] [place] [address] [phone] Nurse Practitioner Internal Medicine 10/06/20 Macho Appiah MD [address] [place] [address] [phone] Consulting Physician Cardiology 03/08/20 Samanta Garcia MD [address] [place] [phone] Consulting Physician Neuro-Oncology 02/13/22 Marisabel Ahn MD [address] [place] [address] [id number] Consulting Physician Endocrinology 06/08/21 Zion Lassiter MD [address] [place] [address] [phone] Consulting Physician Radiation Oncology 03/08/20 Carol Madison PA [address] [place] [address] Physician Postal Superintendent Surgical Oncology 03/10/20 Carmen Reilly MD [address] [place], [place] [phone] Consulting Physician Internal Medicine 08/07/21
--- NOTE | 2023-06-07 14:21 | RAD REPORT ---
EXAM DESCRIPTION: RAD - Chest Single View - 06/07/2023 2:08 pm CLINICAL HISTORY: MALAISE Chest pain. COMPARISON: Chest Pa And Lat (2 Views) dated 10/21/2019; Abdomen 1 View (KUB) dated 10/19/2019; Chest Single View dated 10/18/2016; CHEST SINGLE VIEW dated 06/12/2010 FINDINGS: Portable technique limits examination quality. The lungs are grossly clear. The heart is normal in size. No displaced fractures. IMPRESSION: No acute intrathoracic process suspected.
[2023-06-07 14:26] LABS: Absolute Lymphocytes (CBC) 1.6 K/uL (0.7-4.9); Hematocrit 43.9 % (36.0-45.0); MCV 95.8 fL (80-100); MPV 8.6 fL (7.6-11.3); Platelets 133 thou/uL (152-406); RBC Red Blood Cell Count 4.58 M/uL (3.86-4.86)
[2023-06-07 14:31] LABS: Protime INR 1.21
[2023-06-07 14:39] LABS: SARS-CoV-2 Antigen Rapid Res Negative (Negative)
[2023-06-07 14:49] LABS: Albumin 3.6 g/dL (3.4-5.0); Bilirubin Total 0.4 mg/dL (0.2-1.0); Potassium 2.8 mEq/L (3.5-5.1); Protein, Total 8.3 g/dL (6.4-8.2); Troponin High Sensitivity 9.8 pg/mL (<58.9)
--- NOTE | 2023-06-07 15:27 | RAD REPORT ---
EXAM DESCRIPTION: CTAbdomen Pelvis W Contrast - 06/07/2023 3:11 pm CLINICAL HISTORY: Abdominal pain. ABD PAIN COMPARISON: <Comparisons> TECHNIQUE: Biphasic CT imaging of the abdomen and pelvis was performed with 100 ml non-ionic IV cont rast. All CT scans are performed using dose optimization technique as appropriate and may include automated exposure control or mA/KV adjustment according to patient size. FINDINGS: The lung bases are clear.Small hiatal hernia. The liver demonstrates diffuse fatty infiltration. The spleen, pancreas, adrenal glands and kidneys a re within normal limits. No bowel obstruction, free air, free fluid or abscess. Prominent sigmoid diverticulosis coli is prese nt. There is scattered diverticulosis noted throughout the colon. The appendix is not identified as a discrete structure, however, no secondary findings of appendicitis are identified. Aortoiliac ather osclerosis. No evidence of significant lymphadenopathy. No suspicious bony findings. IMPRESSION: No acute intra-abdominal or pelvic finding. Prominent colonic diverticulosis is seen, greatest in the sigmoid colon. No diverticulitis.
--- NOTE | 2023-06-07 16:12 | ER ---
Nurse's Notes [facility] Name: Lucero Lopez Age: 77 yrs Sex: Female : 1945 Arrival Date: 06/07/2023 Time: 13:21 Bed 13 Private MD: Diagnosis: Enteritis, diarrhea, dehydration, prerenal azotemia, hypokalemia Presentation: 06/07 13:34 Chief complaint: Nausea, diarrhea, and generalized weakness x 3 days. Coronavirus hb screen: Client presents with at least one sign or symptom that may indicate coronavirus-19. Provider contacted for isolation considerations. Ebola Screen: No symptoms or risks identified at this time. Initial Sepsis Screen: Does the patient meet any 2 criteria? No. Patient's initial sepsis screen is negative. Does the patient have a suspected source of infection? No. Patient's initial sepsis screen is negative. Risk Assessment: Do you want to hurt yourself or someone else? Patient reports no desire to harm self or others. Onset of symptoms was June 04, 2023. 13:34 Method Of Arrival: Ambulatory hb 13:34 Acuity: TOSHIA 3 hb Historical: - Allergies: 13:36 No Known Drug Allergies; hb - PMHx: 13:36 Diabetes - NIDDM; Diverticulitis; Hypertension; Atrial fibrillation; Breast Cancer; hb - PSHx: 13:36 Heart Stents; Mastectomy - Right; hb - Immunization history:: Adult Immunizations up to date. - Social history:: Smoking status: Patient denies any tobacco usage or history of. Screenin:29 [facility] ED Fall Risk Assessment (Adult) Score/Fall Risk Level 0 - 2 = Low Risk nj1 Oriented to surroundings, Maintained a safe environment, Hourly rounding (assess needs \T\ fall precautionary measures) done. Abuse screen: Denies threats or abuse. Denies injuries from another. Nutritional screening: No deficits noted. Tuberculosis screening: No symptoms or risk factors identified. Assessment: 14:10 General: Appears in no apparent distress. comfortable, Behavior is calm, cooperative, nj1 appropriate for age. Pain: Denies pain. Neuro: Level of Consciousness is awake, alert, obeys commands, Oriented to person, place, time, situation, Reports weakness. Cardiovascular: Patient's skin is warm and dry. Respiratory: Airway is patent Respiratory effort is even, unlabored. GI: Reports diarrhea, nausea. 17:20 Reassessment: Patient appears in no apparent distress at this time. Patient and/or nj1 family updated on plan of care and expected duration. Pain level reassessed. Patient is alert, oriented x 3, equal unlabored respirations, skin warm/dry/pink. Pain: Complains of pain in head Pain currently is 4 out of 10 on a pain scale. Quality of pain is described as aching. 19:17 Reassessment: Patient appears in no apparent distress at this time. Patient and/or nj1 family updated on plan of care and expected duration. Pain level reassessed. Patient is alert, oriented x 3, equal unlabored respirations, skin warm/dry/pink. 19:48 Reassessment: Patient appears in no apparent distress at this time. Patient and/or nj1 family updated on plan of care and expected duration. Pain level reassessed. Patient is alert, oriented x 3, equal unlabored respirations, skin warm/dry/pink. Patient denies pain at this time. Patient states feeling better. Patient states symptoms have improved. Vital Signs: 13:34 BP 138 / 72; Pulse 64; Resp 16; Temp 97.3(O); Pulse Ox 96% on R/A; Weight 72.57 kg; hb Height 5 ft. 3 in. ; Pain 0/10; 16:38 BP 130 / 67; Pulse 65; Resp 21; Pulse Ox 98% on R/A; nj1 18:02 BP 138 / 72; Pulse 64; Resp 14; Pulse Ox 98% ; nj1 19:16 BP 130 / 65; Pulse 62; Resp 16; Pulse Ox 95% ; nj1 19:48 BP 131 / 63; Pulse 64; Resp 18; Pulse Ox 95% on R/A; Pain 0/10; nj1 13:34 Body Mass Index 28.34 (72.57 kg, 160.02 cm) hb 13:34 Pain Scale: Adult hb 19:48 Pain Scale: Adult nj1 ED Course: 13:24 Patient arrived in ED. mg5 13:35 Devi Núñez MD is Attending Physician. sp3 13:35 Triage completed. hb 13:37 Arm band placed on. hb 13:46 Magdalena Sharma, YOANA is Primary Nurse. nj1 14:05 EKG done, by ED staff. aw1 14:09 Flu Sent. aw1 14:09 SARS RAPID Sent. aw1 14:10 Chest Single View XRAY In Process Unspecified. EDMS 14:10 Patient has correct armband on for positive identification. Bed in low position. Call nj1 light in reach. Provided Education on: call light, fall precautions. 14:10 Inserted saline lock: 22 gauge in left antecubital area, using aseptic technique. Blood nj1 collected. 15:13 CT Abd/Pelvis - IV Contrast Only In Process Unspecified. EDMS 19:48 No provider procedures requiring assistance completed. IV discontinued, intact, nj1 bleeding controlled. Administered Medications: 16:39 Drug: NS 0.9% IV 1000 ml IV at 1 bolus Per protocol; 1000 mL bolus Route: IV; Rate: 1 nj1 bolus; Site: left antecubital; 18:00 Follow up: Response: No adverse reaction; IV Status: Completed infusion; IV Intake: nj1 1000ml 16:46 Drug: Ciprofloxacin IVPB 400 mg 200 ml IVPB once over 60 mins Volume: 200 ml; Route: nj1 IVPB; Infused Over: 60 mins; Site: left antecubital; 17:47 Follow up: Response: No adverse reaction; IV Status: Completed infusion; IV Intake: nj1 200ml 16:48 Drug: Potassium Chloride PO 40 mEq PO once Route: PO; nj1 17:00 Follow up: Response: No adverse reaction nj1 17:47 Drug: Acetaminophen PO 1000 mg PO once Route: PO; nj1 18:50 Follow up: Response: No adverse reaction; Pain is decreased nj1 17:50 Drug: metroNIDAZOLE IVPB 500 mg 100 ml IVPB at 200 ml/hr once over 30 mins Volume: 100 nj1 ml; Route: IVPB; Rate: 200 ml/hr; Infused Over: 30 mins; Site: left antecubital; 18:50 Follow up: Response: No adverse reaction; IV Status: Completed infusion; IV Intake: nj1 100ml 18:00 Drug: NS 0.9% IV 1000 ml IV at 1 bolus Per protocol; 1000 mL bolus Route: IV; Rate: 1 nj1 bolus; Site: left antecubital; 19:47 Follow up: Response: No adverse reaction; IV Status: Completed infusion; IV Intake: nj1 1000ml Medication: 19:49 VIS not applicable for this client. nj1 Intake: 17:47 IV: 200ml; Total: 200ml. nj1 18:00 IV: 1000ml; Total: 1200ml. nj1 18:50 IV: 100ml; Total: 1300ml. nj1 19:47 IV: 1000ml; Total: 2300ml. nj1 Outcome: 16:10 Discharge ordered by . sp3 19:49 Discharged to home ambulatory, nj1 19:49 Condition: stable 19:49 Discharge instructions given to patient, Instructed on discharge instructions, follow up and referral plans. medication usage, Demonstrated understanding of instructions, follow-up care, medications, Prescriptions given X 2, 19:49 Patient left the ED. nj1 Signatures: Dispatcher [employer] EDMS Codie Gray RN RN Devi Núñez MD MD sp3 Magdalena Sharma RN RN nj Lainey Wheeler [facility] [address] mg5 Corrections: (The following items were deleted from the chart) 14:29 14:09 Inserted saline lock: [place] [id number] 16:59 16:38 Pulse 65bpm; Resp 21bpm; Pulse Ox 98% RA; [place] [id number]
--- NOTE | 2023-06-07 16:12 | EDPHYS ---
Physician Documentation [facility] Name: Lucero Lopez Age: 77 yrs Sex: Female : 1945 Arrival Date: 06/07/2023 Time: 13:21 Bed 13 Private MD: ED Physician Devi Núñez HPI: 06/07 14:13 This 77 yrs old Female presents to ER via Ambulatory with complaints of Diarrhea, sp3 General Weakness. 14:13 77-year-old female with a history of diabetes, atrial fibrillation on Eliquis, sp3 hypertension, prior breast cancer with current no evidence of disease presents to the ED with chief complaint abdominal pain and diarrhea for the last 4 days. Patient states that she feels dehydrated and generally weak in nature. She denies vomiting, fever, URI symptoms, shortness of breath, chest pain, back pain, rash, known sick contacts, travel history, potential bad food, or any other signs or symptoms on ROS at this time.. Historical: - Allergies: 13:36 No Known Drug Allergies; hb - PMHx: 13:36 Diabetes - NIDDM; Diverticulitis; Hypertension; Atrial fibrillation; Breast Cancer; hb - PSHx: 13:36 Heart Stents; Mastectomy - Right; hb - Immunization history:: Adult Immunizations up to date. - Social history:: Smoking status: Patient denies any tobacco usage or history of. ROS: 14:13 Constitutional: Negative for fever, chills, and weight loss, Eyes: Negative for injury, sp3 pain, redness, and discharge, Neck: Negative for injury, pain, and swelling, Cardiovascular: Negative for chest pain, palpitations, and edema, Respiratory: Negative for shortness of breath, cough, wheezing, and pleuritic chest pain, Back: Negative for injury and pain, MS/Extremity: Negative for injury and deformity, Skin: Negative for injury, rash, and discoloration, Neuro: Negative for headache, weakness, numbness, tingling, and seizure, Psych: Negative for depression, anxiety, suicide ideation, homicidal ideation, and hallucinations, Allergy/Immunology: Negative for hives, rash, and allergies, Endocrine: Negative for neck swelling, polydipsia, polyuria, polyphagia, and marked weight changes, Hematologic/Lymphatic: Negative for swollen nodes, abnormal bleeding, and unusual bruising, 14:13 All other systems are negative, Exam: 14:18 Constitutional: This is a well developed, well nourished patient who is awake, alert, sp3 and in no acute distress. Head/Face: Normocephalic, atraumatic. Eyes: Pupils equal round and reactive to light, extra-ocular motions intact. Lids and lashes normal. Conjunctiva and sclera are non-icteric and not injected. Cornea within normal limits. Periorbital areas with no swelling, redness, or edema. ENT: Nares patent. No nasal discharge, no septal abnormalities noted. External auditory canals are clear. Oropharynx with no redness, swelling, or masses, exudates, or evidence of obstruction, uvula midline. Mucous membranes moist. Neck: Trachea midline, no thyromegaly or masses palpated, and no cervical lymphadenopathy. Supple, full range of motion without nuchal rigidity, or vertebral point tenderness. No Meningismus. Chest/axilla: Normal chest wall appearance and motion. Nontender with no deformity. No lesions are appreciated. Cardiovascular: Regular rate and rhythm with a normal S1 and S2. No gallops, murmurs, or rubs. Normal PMI, no JVD. No pulse deficits. Respiratory: Lungs have equal breath sounds bilaterally, clear to auscultation and percussion. No rales, rhonchi or wheezes noted. No increased work of breathing, no retractions or nasal flaring. Back: No spinal tenderness. No costovertebral tenderness. Full range of motion. Skin: Warm, dry with normal turgor. Normal color with no rashes, no lesions, and no evidence of cellulitis. MS/ Extremity: Pulses equal, no cyanosis. Neurovascular intact. Full, normal range of motion. Neuro: Awake and alert, GCS 15, oriented to person, place, time, and situation. Cranial nerves II-XII grossly intact. Motor strength 5/5 in all extremities. Sensory grossly intact. Cerebellar exam normal. Normal gait. Psych: Awake, alert, with orientation to person, place and time. Behavior, mood, and affect are within normal limits. 14:18 Abdomen/GI: Soft but diffusely tender without peritoneal signs, rebound or guarding., Vital Signs: 13:34 BP 138 / 72; Pulse 64; Resp 16; Temp 97.3(O); Pulse Ox 96% on R/A; Weight 72.57 kg; hb Height 5 ft. 3 in. ; Pain 0/10; 16:38 BP 130 / 67; Pulse 65; Resp 21; Pulse Ox 98% on R/A; nj1 18:02 BP 138 / 72; Pulse 64; Resp 14; Pulse Ox 98% ; nj1 19:16 BP 130 / 65; Pulse 62; Resp 16; Pulse Ox 95% ; nj1 19:48 BP 131 / 63; Pulse 64; Resp 18; Pulse Ox 95% on R/A; Pain 0/10; nj1 13:34 Body Mass Index 28.34 (72.57 kg, 160.02 cm) hb 13:34 Pain Scale: Adult hb 19:48 Pain Scale: Adult nj1 MDM: 13:38 Patient medically screened. sp3 14:18 Data reviewed: vital signs, nurses notes, lab test result(s), EKG, radiologic studies. sp3 ED course: 77-year-old female with extensive past medical history now with abdominal pain and diarrhea. Given her cancer history as well, we will obtain CT scan of the abdomen pelvis, laboratory values, urine analysis and basic sepsis workup. Disposition pending workup and patient course. Vital signs are currently normal patient does not appear to be in any acute distress.. 15:58 ED course: CT scan demonstrates no significant inflammatory process or abnormality. sp3 Laboratory work and chemistries demonstrate mild bump in creatinine likely prerenal in nature with potassium of 2.8. Will administer IV fluids, potassium and Cipro and Flagyl antibiotics. Lactate of 2.1. Will discharge patient home on oral rehydration and p.o. antibiotics and follow-up with PCP as needed.. 12 13:38 Order name: Blood Culture Adult (2) sp3 06/07 13:38 Order name: CBC with Diff; Complete Time: 15:43 sp3 06/07 13:38 Order name: CMP; Complete Time: 15:43 sp3 12 13:38 Order name: Lactate w/ 2H reflex if indic.; Complete Time: 15:43 sp3 06/07 13:38 Order name: Protime (+inr); Complete Time: 15:43 sp3 06/07 13:38 Order name: Ptt, Activated; Complete Time: 15:43 sp3 06/07 13:38 Order name: Urinalysis w/ reflexes sp3 06/07 13:38 Order name: Troponin High Sensitivity; Complete Time: 15:43 sp3 06/07 13:38 Order name: Flu sp3 06/07 13:38 Order name: SARS RAPID; Complete Time: 15:43 sp3 06/07 17:14 Order name: Urine Culture EDIA 06/07 13:38 Order name: Chest Single View XRAY; Complete Time: 15:43 sp3 06/07 14:23 Order name: CT Abd/Pelvis - IV Contrast Only; Complete Time: 15:43 sp3 06/07 13:38 Order name: EKG; Complete Time: 13:39 sp3 06/07 13:38 Order name: Cardiac monitoring; Complete Time: 14:09 sp3 06/07 13:38 Order name: EKG - Nurse/Tech; Complete Time: 14:09 sp3 06/07 13:38 Order name: IV Saline Lock - Large Bore; Complete Time: 14:30 sp3 06/07 13:38 Order name: Labs collected and sent; Complete Time: 14:30 sp3 06/07 13:38 Order name: O2 Per Protocol; Complete Time: 14:30 sp3 06/07 13:38 Order name: O2 Sat Monitoring; Complete Time: 14:30 sp3 06/07 13:38 Order name: Vital Signs; Complete Time: 14:30 sp3 Administered Medications: 16:39 Drug: NS 0.9% IV 1000 ml IV at 1 bolus Per protocol; 1000 mL bolus Route: IV; Rate: 1 nj1 bolus; Site: left antecubital; 18:00 Follow up: Response: No adverse reaction; IV Status: Completed infusion; IV Intake: nj1 1000ml 16:46 Drug: Ciprofloxacin IVPB 400 mg 200 ml IVPB once over 60 mins Volume: 200 ml; Route: nj1 IVPB; Infused Over: 60 mins; Site: left antecubital; 17:47 Follow up: Response: No adverse reaction; IV Status: Completed infusion; IV Intake: nj1 200ml 16:48 Drug: Potassium Chloride PO 40 mEq PO once Route: PO; nj1 17:00 Follow up: Response: No adverse reaction nj1 17:47 Drug: Acetaminophen PO 1000 mg PO once Route: PO; nj1 18:50 Follow up: Response: No adverse reaction; Pain is decreased nj1 17:50 Drug: metroNIDAZOLE IVPB 500 mg 100 ml IVPB at 200 ml/hr once over 30 mins Volume: 100 nj1 ml; Route: IVPB; Rate: 200 ml/hr; Infused Over: 30 mins; Site: left antecubital; 18:50 Follow up: Response: No adverse reaction; IV Status: Completed infusion; IV Intake: nj1 100ml 18:00 Drug: NS 0.9% IV 1000 ml IV at 1 bolus Per protocol; 1000 mL bolus Route: IV; Rate: 1 nj1 bolus; Site: left antecubital; 19:47 Follow up: Response: No adverse reaction; IV Status: Completed infusion; IV Intake: nj1 1000ml Disposition Summary: 06/07/23 16:10 Discharge Ordered Notes: Location: Home sp3 Condition: Stable sp3 Diagnosis - Enteritis, diarrhea, dehydration, prerenal azotemia, hypokalemia sp3 Followup: sp3 - With: Private Physician - When: As needed - Reason: Continuance of care Discharge Instructions: - Discharge Summary Sheet sp3 - Diarrhea, Adult sp3 Forms: - Medication Reconciliation Form sp3 - Thank You Letter sp3 - Antibiotic Education sp3 - Prescription Opioid Use sp3 - Patient Portal Instructions sp3 - Leadership Thank You Letter sp3 Prescriptions: - Cipro 500 mg Oral tablet - take 1 tablet ORAL route every 12 hours for 7 days; 14 tablet; Refills: 0, sp3 Product Selection Permitted - Flagyl 500 mg Oral tablet - take 1 tablet ORAL route every 8 hours for 7 days; 21 tablet; Refills: 0, sp3 Product Selection Permitted Signatures: Dispatcher [employer] Codie Carrero, YOANA LEES Devi Núñez MD MD sp3 Magdalena Sharma RN RN nj1
[2023-06-07] MEDS ORDERED: METRONIDAZOLE 500mg IVPB 500 MG/100 ML BAG IV ONE (16:28)
[2023-06-07] MEDS ORDERED: NA CHLORIDE 0.9% 2,000 ML ONE (16:28)
[2023-06-07] MEDS ORDERED: CIPROFLOXACIN 400mg IV 400 MG/200 ML BAG IV ONE (16:28)
[2023-06-07] MEDS ORDERED: POTASSIUM CL SA 10 MEQ TAB PO ONE (16:28)
[2023-06-07 16:57] LABS: Specific Gravity 1.028 (1.005-1.030); Urine Bacteria <20 /HPF (<20); Urine Bilirubin NEGATIVE (Negative); Urine Blood Negative (Negative); Urine Clarity Extremely Turbid (Clear); Urine Color Light-Yellow (Yellow); Urine Glucose 4+ (Over) (Negative); Urine Mucus Slight /HPF (None Seen); Urine Protein TRACE (Negative); Urine RBC <5 /HPF (None Seen); Urine Urobilinogen Normal (Normal); Urine WBC Clump Occasional /HPF (None Seen); Urine pH 5.5 (5.0-7.0)
[2023-06-07] MEDS ORDERED: ACETAMINOPHEN 500 MG TAB ONE (17:53)
[2023-06-07 20:11] VITALS: TEMP 97.3
[2023-06-07 20:14] VITALS: O2SAT 95
[2023-06-07 20:15] VITALS: BP 131/63
--- NOTE | 2023-06-11 13:57 | EKG ---
Test Date: 2023-06-07 Test Time: 14:02:38 Lineman: PEARL MEASUREMENT RESULTS: Intervals: Rate: 64 KS: 212 QRSD: 96 QT: 444 QTc: 458 [place]: P: 71 KS: 212 QRS: 63 T: 60 INTERPRETIVE STATEMENTS: Sinus rhythm with 1st degree AV block Otherwise normal ECG Compared to ECG 10/21/2019 12:15:04 First degree AV block now present Electronically Signed On 06-11-23 13:43:39 [employer] TE[employer] by Matthias Owens
== END 2023-06-07 19:49 | disposition home or self-care (01) ==
LOC: ER 13:21
DX: K52.9 Noninfective gastroenteritis and colitis, unspecified (principal); E86.0 Dehydration; E87.6 Hypokalemia; R79.89 Other specified abnormal findings of blood chemistry; I10 Essential (primary) hypertension; Z11.52 Encounter for screening for COVID-19; Z95.818 Presence of other cardiac implants and grafts
CPT/HCPCS: 96365; 96367; 96361; 93005; 87040 ×2; 87088; 85025; 81001; 87086; 36415; 85610; 83605; 85730; 87077; 87186; 84484; 80053; 87804 ×2; 74177; 71045; 99284; 87811; Q9967; J0744; J7030